=== PATIENT | male | born 1965 | race Caucasian/White ===

== ENCOUNTER 2023-08-17 14:01 | Emergency (ER) | payer OTHER, SELFPAY ==
[2023-08-17 14:22] VITALS: BP 142/75
--- NOTE | 2023-08-17 15:54 | ED.GENMED ---
History of Present Illness
General
Chief Complaint: Dizziness
Source: patient
Time Seen by Provider: 08/17/23 15:42
Travel History
Have you had any contact with someone who has COVID-19?: No
Do you have any symptoms of coronavirus? Fever > 100 degrees, chills, cough, shortness of breath, sore throat, loss of taste or smell, muscle aches, or headache?: No
History of Present Illness
History of Present Illness:
58-year-old male presents from [facility]. He actually stopped the crisis first and was cleared from crisis. He states that his overall reason for visiting is his dissatisfaction with his current place of stay. He has ongoing symptoms of
dizziness shakiness constipation. None of these are new the symptoms going on over a year following some traumatic injuries. He denies fevers. He states the food at his [facility] is not good. He states he is not going back to that facility.
No other complaints at this
Phy Exam
Physical Exam
Physical Exam:
General: Well-appearing male no acute respiratory distress
HEENT: Normocephalic pupils equal round reactive to light
Heart: Regular rate and rhythm no murmurs
Lungs: Clear to auscultation bilaterally no wheezing.
Ext: No cyanosis or edema.
Skin: warm, no rashes
Neuro: Alert and oriented, no tremor
Course
Orders/Labs/Results
Orders:
Orders
08/17/23 15:53
Case Management Consult ONCE
Case Management Consult: Discharge Planning
Vital Signs
Initial and Last Documented VS:
Initial Vital Signs
Temp Pulse Resp BP Pulse Ox
98 F 78 16 142/75 98
08/17/23 14:22 08/17/23 14:22 08/17/23 14:22 08/17/23 14:22 08/17/23 14:22
Last Documented Vital Signs
Temp Pulse Resp BP Pulse Ox
98 F 66 16 107/77 98
08/17/23 14:22 08/17/23 16:07 08/17/23 16:07 08/17/23 16:07 08/17/23 16:07
MDM/Problems Addressed
Differential Diagnosis Includes:
Patient triaged as dizziness but this is not acute. This has been ongoing. There is no new acute medical issues going on today. His main issue is the [facility] he is currently staying at is not meeting his needs. Case management consulted.
*Critical Care Note
Total Time (30-74mins, 75-104mins- exclusive of procedures): Not Applicable
Update Note
Update Note:
Case management and to see patient. They spoke with him. They explained he does need to go back to his current facility that he can talk with case management there if he is unsatisfied. At this point no medical acute urgency is required to
evaluate for further tests indicated.
ED Attending Note
-
Portions of this chart may have been created with voice recognition software.� Occasional wrong word or��sound alike� substitutions may have occurred due to the inherent limitations of voice recognition software.
Discharge Plan
Departure
Patient Disposition: Home (Routine Discharge)
Date of Disposition: 08/17/23
Time of Disposition: 16:46
Patient with high blood pressure during this ER visit?: No
Discharge Problem:
Difficulty coping
Activity Restrictions/Additional Instructions:
Please return to your current nursing facility and speak with case management there if you are unsatisfied. Return here for any medical needs.
Interventions
Interventions:
*Risk Screen - Suicide Last Done: 08/17/23 16:01
*General Assessment Last Done: 08/17/23 16:01
*Neglect/Abuse Screening Last Done: 08/17/23 16:01
*ED COVID-19 Vaccine History Last Done: 08/17/23 16:01
ED- Neurological Assessment Last Done: 08/17/23 16:01
ED Swallowing Screen Last Done: 08/17/23 16:05
[2023-08-17 16:07] VITALS: BP 107/77
--- NOTE | 2023-08-17 16:41 | CM ---
CM reviewed medical records. CM met with patient in room. Patient stated that he does not want to return to [facility]. Patient stated that he does not like the food, and he doesn't get his medication on time. Patient stated that his room mate
is incontinent and the smell is offensive. CM asked what his plan would be regarding discharge if he doesn't return to [facility]. Patient stated that he will walk to [place] or take a cab to [place] and lives on the streets. Cm asked where he would get
his medications and food from. Patient stated that he will return to drinking.
CM stated that there will not be assistance in transportation to [place] unless we have a confirmed place. He stated that his family has abandoned him and he has no family resources.
Patient is now agreeable to return to [facility] .
CM spoke with Xi at [facility]. Confirmed that patient was accepted from [facility]. Patient is pending MA application to be able to transition to [facility] as patient has a history of TBI.
[facility] will work with patient to address some of his care needs.
--- NOTE | 2023-08-17 17:03 | EDRN ---
Pt is cleared by crisis and by medicine for discharge. Pt states he doesn't want to go back his facility, states he just wants to walk out and take a cab to [place]. Pt is alert, oriented, ambulatory with steady gait. Per crisis pt is free to leave.
== END 2023-08-17 17:14 | disposition home or self-care (01) ==
LOC: EMR 14:01
PROVIDERS: EMERGENCY PHYSICIAN Emergency Medicine; FAMILY PHYSICIAN Internal Medicine
DX: Z75.8 Other problems related to medical facilities and other health care (principal); Z73.9 Problem related to life management difficulty, unspecified
CPT/HCPCS: 99281

== ENCOUNTER 2024-03-02 13:34 | Emergency (ER) | payer MEDICARE, SELFPAY ==
[2024-03-02] VITALS (14 sets, daily range): BP systolic 111–149; BP diastolic 64–109; PULSE 63–98
[2024-03-02 13:56] LABS: % Basophils 0.7 % (0-2); % Eosinophils 3.3 % (0-6); % Immature Granulocytes 0.2 % (0-0.5); % Lymphocytes 32.7 % (20.5-51.1); % Monocytes 9.3 % (1.7-9.3); Absolute Eosinophils 0.2 10^3/uL (0-0.7); Absolute Monocytes 0.6 10^3/uL (0.1-0.6); Absolute Neutrophils 3.3 10^3/uL (1.4-6.5); Hematocrit 38.5 % (39.0-52.0); Hemoglobin 13.3 g/dL (13.0-18.0); Mean Corp Hgb Conc. 34.6 g/dL (33.0-37.0); Mean Corpuscular Hgb 31.9 pg (27.0-31.0); Mean Corpuscular Volume 92.1 fL (80.0-94.0); Mean Platelet Volume 11.7 fL (7.4-10.4); Nucleated Red Blood Cells % 0 % (-); Platelet Count 95 10^3/uL (130-400); Red Blood Cell Count 4.17 10^6/uL (4.70-6.10); White Blood Cell Count 6.1 10^3/uL (4.8-10.8)
[2024-03-02 14:06] LABS: ALT (SGPT) 19 U/L (0-50); AST (SGOT) 20 U/L (17-59); Albumin 4.1 g/dl (3.5-5.0); Alkaline Phosphatase 61 U/L (38-126); Blood Urea Nitrogen 37 mg/dl (9-20); Calcium 9.9 mg/dl (8.4-10.2); Carbon Dioxide 29 mmol/L (22-30); Chloride 103 mmol/L (98-107); Glucose 129 mg/dl (70-99); Potassium 4.7 mmol/L (3.5-5.1); Sodium 142 mmol/L (135-145); Total Bilirubin 0.6 mg/dl (0.2-1.3); Total Protein 6.6 g/dl (6.3-8.2); eGFR > 60.00
--- NOTE | 2024-03-02 17:10 | ED.GENMED ---
History of Present Illness
<JESUS Kyle - Last Filed: 03/02/24 22:15>
General
Chief Complaint: Failure to Thrive
Source: patient
Exam Limitations: none
Time Seen by Provider: 03/02/24 16:25
Nursing documentation reviewed up to this point in time: agreed with
History of Present Illness
History of Present Illness:
Patient is a 58-year-old male with history of alcohol abuse traumatic brain injury diabetes from [facility] presents to the ER for evaluation. Patient tells me he is not happy at the facility because he has to walk
outside and go up and down a hill to get his food. He is unhappy with several other things at the facility. He is unhappy with his roommate. He reports sometimes he has trouble with caring for himself. He reports at times he feels weak.
Triage note states patient was reporting suicidal ideation but' too weak to do anything about it.' Patient admits to feeling depressed about his life situation does not like living at this facility but denies suicidal thoughts he denies any fever
or chills.
He denies any chest pain shortness of breath.
Patient complains of chronic pain
Review of Systems
<JESUS Kyle - Last Filed: 03/02/24 22:15>
Review of Systems
Allergies reviewed?: Yes
All Other Systems: ROS reviewed and negative except as documented in HPI and ROS
Constitutional: Reports fatigue; Denies fever
EENT: Reports no symptoms
Respiratory: Reports no symptoms; Denies trouble breathing
Cardiac: Reports no symptoms; Denies chest pain or palpitations
ABD/GI: Reports no symptoms; Denies abdominal pain, nausea or vomiting
Musculoskeletal: Reports no symptoms
Skin: Reports no symptoms
Neurological: Reports no symptoms
Hematologic/Lymphatic: Reports no symptoms
Psychiatric: Reports no symptoms
Phy Exam
<JESUS Kyle - Last Filed: 03/02/24 22:15>
General Physical Exam
General Presentation: no apparent distress
General age: appears stated age
General Skin: warm and dry
General Habitus: normal
General Mental: alert
General Hydration: appears well hydrated
Cardiovascular Exam
Cardiovascular Exam: regular rate/rhythm, no murmur and normal peripheral pulses
Pulmonary Exam
Pulmonary Exam: lungs clear and no respiratory distress
Gastrointestinal Exam
Gastrointestinal Exam: non tender and soft
Neurological Exam
Neurological Exam: alert and oriented x3
Musculoskeletal Exam
Musculoskeletal Exam: full ROM
Skin Exam
Skin Exam: normal color and warm/dry
Psychiatric Exam
Psychiatric Exam: normal mood/affect
Course
<JESUS Kyle - Last Filed: 03/02/24 22:15>
Orders/Labs/Results
Orders:
Orders
03/02/24 13:40
EKG [Electrocardiogram (*1)] Urgent
Reason for Study: Fatigue / Weakness
EKG- Treatment ONCE
03/02/24 13:42
Complete Blood Count/With Diff Urgent
Comprehensive Metabolic Panel Urgent
03/02/24 17:12
0.9% Sodium Chloride 1000 ml [Nss] 1,000 ml IV BOLUS
03/02/24 17:28
UA Reflex to Culture [Urinalysis Reflex To Culture] Urgent
Date Specimen was Collected: 03/02/24
Time Specimen was Collected: 17:23
Urine Microscopic Reflex Cult Urgent
03/02/24 19:02
Chest [CR Chest - 2 Views ] Urgent
Comment:
Reason For Exam: weakness
03/02/24 20:10
Crisis Consult Urgent
Reason for Consult: eval for outpt resources for depression
03/02/24 20:21
Walker [Treatment- Walker] ONCE
Abnormal Lab Results
03/02/24 03/02/24
13:42 17:28
RBC 4.17 L 10^6/uL
(4.70-6.10)
Hct 38.5 L %
(39.0-52.0)
MCH 31.9 H pg
(27.0-31.0)
Plt Count 95 L 10^3/uL
(130-400)
MPV 11.7 H fL
(7.4-10.4)
BUN 37 H mg/dl
(9-20)
Glucose 129 H mg/dl
(70-99)
Urine Ketones Trace A
(Negative)
Leukocyte Esterase Rfl Trace A
(Negative)
Urine Bacteria (Reflex) Few A
(Negative)
03/02/24 13:42
03/02/24 13:42
Vital Signs
Initial and Last Documented VS:
Initial Vital Signs
Temp Pulse Resp Pulse Ox
97.6 F 68 26 96
03/02/24 13:38 03/02/24 13:38 03/02/24 13:38 03/02/24 13:38
Last Documented Vital Signs
Temp Pulse Resp BP Pulse Ox
97.6 F 66 20 125/69 97
03/02/24 19:15 03/02/24 20:50 03/02/24 20:50 03/02/24 20:50 03/02/24 20:50
Checker Loader consulted with Physician
Checker Loader consulted with physician?: Yes
Name of Physician Consulted: Dr Cid
<Jorge Luis Cid, DO - Last Filed: 03/02/24 17:50>
Orders/Labs/Results
Orders:
Orders
03/02/24 13:40
EKG [Electrocardiogram (*1)] Urgent
Reason for Study: Fatigue / Weakness
EKG- Treatment ONCE
03/02/24 13:42
Complete Blood Count/With Diff Urgent
Comprehensive Metabolic Panel Urgent
03/02/24 17:12
0.9% Sodium Chloride 1000 ml [Nss] 1,000 ml IV BOLUS
03/02/24 17:28
UA Reflex to Culture [Urinalysis Reflex To Culture] Urgent
Date Specimen was Collected: 03/02/24
Time Specimen was Collected: 17:23
Urine Microscopic Reflex Cult Urgent
03/02/24 19:02
Chest [CR Chest - 2 Views ] Urgent
Comment:
Reason For Exam: weakness
03/02/24 20:10
Crisis Consult Urgent
Reason for Consult: eval for outpt resources for depression
03/02/24 20:21
Walker [Treatment- Walker] ONCE
Abnormal Lab Results
03/02/24 03/02/24
13:42 17:28
RBC 4.17 L 10^6/uL
(4.70-6.10)
Hct 38.5 L %
(39.0-52.0)
MCH 31.9 H pg
(27.0-31.0)
Plt Count 95 L 10^3/uL
(130-400)
MPV 11.7 H fL
(7.4-10.4)
BUN 37 H mg/dl
(9-20)
Glucose 129 H mg/dl
(70-99)
Urine Ketones Trace A
(Negative)
Leukocyte Esterase Rfl Trace A
(Negative)
Urine Bacteria (Reflex) Few A
(Negative)
03/02/24 13:42
03/02/24 13:42
Vital Signs
Initial and Last Documented VS:
Initial Vital Signs
Temp Pulse Resp Pulse Ox
97.6 F 68 26 96
03/02/24 13:38 03/02/24 13:38 03/02/24 13:38 03/02/24 13:38
Last Documented Vital Signs
Temp Pulse Resp BP Pulse Ox
97.6 F 66 20 125/69 97
03/02/24 19:15 03/02/24 20:50 03/02/24 20:50 03/02/24 20:50 03/02/24 20:50
<JESUS Kyle - Last Filed: 03/02/24 22:15>
MDM/Problems Addressed
Differential Diagnosis Includes:
Weakness failure to thrive dehydration chronic depression
MDM/Problems Addressed:
Patient is a 58-year-old male with history of TBI alcohol abuse presently at a [facility] presented to the ER for various complaints. He has not happy with his life situation does not like living there. He is not happy with
walking down another help for his food. He has complaints of generalized pain at times he feels weak. He denies any fever chills. He presents awake alert no acute distress labs are unremarkable. Patient appeared mildly dehydrated and BUN was
elevated. Patient was given fluids here in the ER. He had a meal and was also hydrated with normal saline. There were no acute findings on chest x-ray. He has no complaints of chest pain EKG noted however with no chest pain not concerning
finding. He ambulated here very well with a walker.
Triage note reported the patient reported suicidal ideation but patient denies on my exam. He does admit to feeling depressed over his life situation because he does not like living where he currently is residing but denies suicidal thoughts. Will
have crisis give patient outpatient resources. He will continue on his antidepressant medicine. Will plan to DC with a walker as patient did very well with a walker and encourage follow-up with family doctor for possible PT consult and evaluation
of current situation.
Discussed case with ED physician.
<JESUS Kyle - Last Filed: 03/02/24 22:15>
*Radiology
Radiology exam reviewed: preliminary read by ED provider (Chest x-ray reviewed by myself unremarkable)
*Pulse Oximetry
Patient hypoxic: no
*EKG
Interpreted by ED Provider?: Yes
*Critical Care Note
Total Time (30-74mins, 75-104mins- exclusive of procedures): Not Applicable
ED Attending Note
<JESUS Kyle - Last Filed: 03/02/24 22:15>
-
Portions of this chart may have been created with voice recognition software.� Occasional wrong word or��sound alike� substitutions may have occurred due to the inherent limitations of voice recognition software.
<Jorge Luis Cid DO - Last Filed: 03/02/24 17:50>
ED Attending Note
Patient seen and examined by attending physician: Yes
I performed the substantive portion of visit, reviewed & personally made and approve the management plan that is documented in note by myself or ELOINA.: Yes
ED Attending Note:
Seen with TAR HEEL, agree with assessment and plan 58-year-old male history of head injury, lives at a facility apparently having difficult activities of daily living complaining of a exacerbation of his chronic pains, sent here for evaluation
Discharge Plan
Departure
Patient Disposition: Home (Routine Discharge)
Date of Disposition: 03/02/24
Time of Disposition: 20:15
Patient with high blood pressure during this ER visit?: No
Condition: Fair
Covid-19: Not Applicable
Discharge Problem:
Weakness
Instructions: Weakness ED
Referrals:
Corbin Flannery DO [Family Provider] -
Activity Restrictions/Additional Instructions:
As discussed patient must increase fluids. Patient must be evaluated by his family doctor in the next several days for reevaluation of current symptoms. Patient will be given a walker to assist with ambulation. Patient was also given
outpatient resources for therapist for his depression.
Return if any worsening of symptoms.
Interventions
Interventions:
*Risk Screen - Suicide Last Done: 03/02/24 13:44
*General Assessment Last Done: 03/02/24 13:44
*Neglect/Abuse Screening Last Done: 03/02/24 13:44
ED- Fall Risk Assessment Last Done: 03/02/24 19:18
*ED COVID-19 Vaccine History Last Done: 03/02/24 13:44
Discharge Date and Time
Print Language: VENEZUELAN
[2024-03-02] MEDS: NSS 1000 IV (17:25)
[2024-03-02 17:49] LABS: Urine Albumin Trace (Neg - Trace); Urine Bilirubin Negative (Negative); Urine Character Clear (Clear); Urine Color Yellow; Urine Glucose Negative (Negative); Urine Ketone Trace (Negative); Urine Leukocyte Trace (Negative); Urine Nitrite Negative (Negative); Urine Occult Blood Negative (Negative); Urine Urobilinogen 1+ (Neg - 1+)
[2024-03-02 18:05] LABS: Urine Bacteria Few (Negative); Urine Red Blood Cell 0-2 /HPF (0-2); Urine Squamous Cell 0-2 /LPF (Few); Urine White Cell 0-2 /HPF (0-5)
== END 2024-03-02 21:45 | disposition home or self-care (01) ==
LOC: EMR 13:34
PROVIDERS: Emergency Medicine; Nurse Practitioner; EMERGENCY PHYSICIAN Emergency Medicine; FAMILY PHYSICIAN Internal Medicine Geriatric Medicine
DX: R53.1 Weakness (principal); E86.0 Dehydration; F10.10 Alcohol abuse, uncomplicated; E11.9 Type 2 diabetes mellitus without complications; Z87.820 Personal history of traumatic brain injury
CPT/HCPCS: 99282; 96360; 71046; 80053; 81003; 81015; 85025; 93005

== ENCOUNTER 2024-03-09 13:12 | Emergency (ER) | payer MEDICARE, SELFPAY ==
--- NOTE | 2024-03-09 13:26 | ED.GENMED ---
History of Present Illness
General
Chief Complaint: Generalized Pain
Source: patient and ambulance crew
Exam Limitations: none
Time Seen by Provider: 03/09/24 13:24
Nursing documentation reviewed up to this point in time: agreed with
History of Present Illness
History of Present Illness:
Patient is a 58-year-old male with past medical history of TBI, alcohol abuse type 2 diabetes anemia anxiety depression PTSD hyperlipidemia currently residing at [facility] presents here for evaluation. Patient was
just here on March 02. Patient complains of chronic pain. He states that his doctor was increasing his pain medication, meloxicam however he has not received this increased dose. He complains of feeling depressed over his life situation. He
mentions that he' wants to kill myself.' He complains of pain to his back neck head. He reports he feels shaky. His complaints today are similar to his ER visit March 02.
He is not happy with the care he is receiving at [facility].
He does have a daughter who is involved in his care and visits him.
Review of Systems
Review of Systems
Allergies reviewed?: Yes
All Other Systems: ROS reviewed and negative except as documented in HPI and ROS
Constitutional: Reports no symptoms
Respiratory: Reports no symptoms
Cardiac: Reports no symptoms
ABD/GI: Reports no symptoms
: Reports no symptoms
Musculoskeletal: Reports other (back pain neck pain )
Skin: Reports no symptoms; Denies rash
Neurological: Reports no symptoms
Psychiatric: Reports other (depression comments about suicidal however denies on direct questioning )
Phy Exam
General Physical Exam
General Presentation: no apparent distress
General age: appears stated age
General Skin: warm and dry
General Habitus: normal
General Mental: alert
General Hydration: appears well hydrated
Cardiovascular Exam
Cardiovascular Exam: regular rate/rhythm, no murmur and normal peripheral pulses
Pulmonary Exam
Pulmonary Exam: lungs clear and no respiratory distress
Neurological Exam
Neurological Exam: alert and oriented x3
Musculoskeletal Exam
Musculoskeletal Exam: full ROM
Skin Exam
Skin Exam: normal color and warm/dry
Psychiatric Exam
Psychiatric Exam: depressed
Course
Orders/Labs/Results
Orders:
Orders
03/09/24 13:29
PSYCHIATRY CONSULT Urgent
Consulting Provider: Sarina Caba
Was physician already notified: Yes
Reason for consult: suicidal thoughts
IV Insert/Care/Rem.- Treatment PRN
03/09/24 13:31
Case Management Consult ONCE
Case Management Consult: Discharge Planning
Requested By:: PHYSICIAN
03/09/24 13:37
Complete Blood Count/With Diff Urgent
Comprehensive Metabolic Panel Urgent
Urinalysis Reflex To Culture Urgent
Date Specimen was Collected: 03/09/24
Time Specimen was Collected: 13:35
Urine Microscopic Reflex Cult Urgent
Abnormal Lab Results
03/09/24
13:37
RBC 4.01 L 10^6/uL
(4.70-6.10)
Hgb 12.6 L g/dL
(13.0-18.0)
Hct 35.8 L %
(39.0-52.0)
MCH 31.4 H pg
(27.0-31.0)
Plt Count 107 L 10^3/uL
(130-400)
MPV 10.9 H fL
(7.4-10.4)
BUN 29 H mg/dl
(9-20)
Total Protein 6.1 L g/dl
(6.3-8.2)
Urine Ketones 1+ A
(Negative)
Urine Bilirubin 1+ A
(Negative)
Leukocyte Esterase Rfl Trace A
(Negative)
03/09/24 13:37
03/09/24 13:37
Vital Signs
Initial and Last Documented VS:
Initial Vital Signs
Pulse Ox
95
03/09/24 13:19
Last Documented Vital Signs
Temp Pulse Resp BP Pulse Ox
98.0 F 62 18 125/80 95
03/09/24 16:13 03/09/24 16:13 03/09/24 16:13 03/09/24 16:13 03/09/24 16:30
MDM/Problems Addressed
Differential Diagnosis Includes:
Not limited to chronic pain, depression, failure to thrive
MDM/Problems Addressed:
This is a 58-year-old male coming from [facility] for TBI patients with a history of TBI for alcohol abuse. This is patient's second visit since March 02.
In summary patient feels generally unhappy with his life situation. he is not happy at [facility]. He complains of chronic pain. This is not new. He had no new injury or fall. He denies any recent illness fever
chills.
Initially patient also stated again that he 'wanted to kill himself,' however on repeat questioning patient reports is not suicidal .he is to simply unhappy and depressed with his current. situation.
I spoke to crisis and psychiatry Dr. Caba. DR Caba did suggest crisis see patient again. Patient was evaluated by crisis who spent a lot of time with patient he again denies any suicidal thoughts. She did offer patient outpatient [facility] group therapy he is willing to do this. Pt was also seen by DR Caba.
I spoke to nurse at [facility]. She does inform me that they did place a call to [facility] pain management (JOSE in [place] today ). They also have a psychiatrist that can come see patient and I recommended that he does see
psychiatry.
Chronic conditions affecting care:
Former alcohol abuse TBI
*Pulse Oximetry
Patient hypoxic: no
*Critical Care Note
Total Time (30-74mins, 75-104mins- exclusive of procedures): Not Applicable
Data Reviewed
Review of Other/Old Records Reveals: Other (previous ED visit and labs )
Patient Management
Discussion with other providers: Network Contract Manager (Psychiatry)
ED Attending Note
-
Portions of this chart may have been created with voice recognition software.� Occasional wrong word or��sound alike� substitutions may have occurred due to the inherent limitations of voice recognition software.
Discharge Plan
Departure
Patient Disposition: Correction/SNF
Date of Disposition: 03/09/24
Time of Disposition: 16:06
Patient with high blood pressure during this ER visit?: No
Condition: Fair
Covid-19: Not Applicable
Discharge Problem:
medical evaluation
Prescriptions:
No Action
metformin 500 mg Tablet
500 mg PO BID
sennosides [senna] 8.6 mg Tablet
17.2 mg PO HS
polyethylene glycol 3350 [ClearLax] 17 gram Powder In Packet
17 g PO DAILY
meloxicam [Mobic] 15 mg Tablet
15 mg PO DAILY
olanzapine 10 mg Tablet
10 mg PO HS
Theragen Tablet
1 tab PO BID
tamsulosin [Flomax] 0.4 mg Capsule
0.4 mg PO DAILY
levothyroxine [Synthroid] 50 mcg Tablet
50 mcg PO DAILY
pantoprazole [Protonix] 40 mg Tablet,Delayed Release (Dr/Ec)
40 mg PO DAILY
trazodone 150 mg Tablet
150 mg PO HS
divalproex 500 mg Tablet Extended Release 24 Hr
500 mg PO TID
docusate sodium [Colace] 100 mg Capsule
100 mg PO DAILY
folic acid 1 mg Tablet
1 mg PO DAILY
levetiracetam [Keppra] 750 mg Tablet
750 mg PO BID
albuterol sulfate [ProAir HFA] 90 mcg/actuation Hfa Aerosol Inhaler
2 puff INHALATION R Q4HPRN PRN (Reason: sob)
fluoxetine [Prozac] 20 mg Capsule
20 mg PO DAILY
prazosin 2 mg Capsule
2 mg PO HS
trolamine salicylate [Aspercreme] 10 % Cream
1 applic TOPICAL DAILYPRN PRN (Reason: mild pain)
melatonin 5 mg Tablet
5 mg PO HSPRN PRN (Reason: sleep)
magnesium oxide 200 mg magnesium Tablet
200 mg PO DAILY
Referrals:
Corbin Flannery DO [Family Provider] -
Activity Restrictions/Additional Instructions:
Patient was evaluated here in the ER there are no acute abnormalities. Patient was seen by crisis and a referral was made to [facility] outpatient group therapy.
In addition it is recommended the patient be seen by psychiatrist at [facility] and as discussed it is recommended the patient follow-up with pain management [facility] for chronic pain.
Interventions
Interventions:
*Risk Screen - Suicide Last Done: 03/09/24 13:14
*General Assessment Last Done: 03/09/24 13:14
*Neglect/Abuse Screening Last Done: 03/09/24 13:34
*ED COVID-19 Vaccine History Last Done: 03/09/24 13:34
Discharge Date and Time
Print Language: KOREAN
[2024-03-09 14:00] LABS: % Basophils 0.5 % (0-2); % Eosinophils 3.4 % (0-6); % Immature Granulocytes 0.2 % (0-0.5); % Monocytes 9.2 % (1.7-9.3); % Neutrophils 50.7 % (42.2-75.2); Absolute Eosinophils 0.2 10^3/uL (0-0.7); Absolute Lymphocytes 2.1 10^3/uL (1.2-3.4); Absolute Monocytes 0.5 10^3/uL (0.1-0.6); Hematocrit 35.8 % (39.0-52.0); Hemoglobin 12.6 g/dL (13.0-18.0); Mean Corp Hgb Conc. 35.2 g/dL (33.0-37.0); Mean Corpuscular Hgb 31.4 pg (27.0-31.0); Mean Corpuscular Volume 89.3 fL (80.0-94.0); Mean Platelet Volume 10.9 fL (7.4-10.4); Nucleated Red Blood Cells % 0 % (-); Platelet Count 107 10^3/uL (130-400); Red Blood Cell Count 4.01 10^6/uL (4.70-6.10); Red Cell Dist. Width 13.4 % (11.5-14.5); White Blood Cell Count 5.9 10^3/uL (4.8-10.8)
[2024-03-09 14:03] LABS: ALT (SGPT) 17 U/L (0-50); AST (SGOT) 19 U/L (17-59); Albumin 3.7 g/dl (3.5-5.0); Alkaline Phosphatase 58 U/L (38-126); Blood Urea Nitrogen 29 mg/dl (9-20); Calcium 9.9 mg/dl (8.4-10.2); Carbon Dioxide 25 mmol/L (22-30); Chloride 103 mmol/L (98-107); Glucose 77 mg/dl (70-99); Potassium 4.7 mmol/L (3.5-5.1); Sodium 139 mmol/L (135-145); Total Bilirubin 0.4 mg/dl (0.2-1.3); Total Protein 6.1 g/dl (6.3-8.2); eGFR > 60.00
--- NOTE | 2024-03-09 14:07 | CM ---
CM reviewed medical records. SABRA spoke with NERIS Murcia at [facility]. Patient have been a resident of the facility since October of 2023. Patient was previously at a skilled facility and was anxious to return home. Residential
treatment was secured at [facility] where the patient now lives. Patient is generally cooperative with medications and other structured activities. Divina reports that patient's mood is labile at times with reports of depressive symptoms and
expressing frustration with his living situation.
Patient was complaining of back pain and requested transfer to [facility] for further evaluation. Nursing requested possible imaging for his back pain, but they understand this is an outpatient follow up. CM provided [facility] with number for nursing to
discuss any further clinical issues.
Patient is to be evaluated by psychiatry due to suicidal ideations. CM will continue to follow as needed.
[2024-03-09 14:18] VITALS: BP 113/79
[2024-03-09 14:34] LABS: Urine Albumin Trace (Neg - Trace); Urine Bilirubin 1+ (Negative); Urine Character Clear (Clear); Urine Color Amber; Urine Glucose Negative (Negative); Urine Ketone 1+ (Negative); Urine Leukocyte Trace (Negative); Urine Nitrite Negative (Negative); Urine Occult Blood Negative (Negative); Urine Specific Gravity 1.015 (<1.030); Urine Urobilinogen 1+ (Neg - 1+)
[2024-03-09 14:44] LABS: Urine Red Blood Cell 0-2 /HPF (0-2); Urine White Cell 0-2 /HPF (0-5)
[2024-03-09 15:00] VITALS: BP 121/86
[2024-03-09 16:00] VITALS: BP 125/80
[2024-03-09 16:13] VITALS: BP 125/80
--- NOTE | 2024-03-09 16:26 | W.PN.UPDATE ---
Update Note
Progress Note Update
asked to see this patient bc ? suicidality. he comes to er for the second time this week w c.o pain. he did say sometimes he thinks about killing himself bc of the pain but he would not act on it...he just wants help w pain. he was seen by our
automobile body worker calixto dorantes who wrote up a comprehensive assessment which is in the [facility] chart. i saw him myself and discussed w her and agree with her assessment that he is not acutely suicidal but rather needs as soon as
possible to be seen by pain mgt to have his pain assessed. he is taking psychotropic medications his current meds include prozac zyprexa and trazodone. the patient has suffered much trauma including a serious head and spine injury about four
years ago when he fell down steps. he lost his prior...then his parents and brother the latter to covid. 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 he now lives in an rtf. discussed w ms
ja. she is calling rtf and recommending psychiatrist for support andmed mgt (would suggest cymbalta could be helpful instead of prozac...gabapentin for pain. not clear if zyprexa is a great choice given weight gain and he does not seem
psychotic. ) would also feel he might benefit from the top program at [facility] and ms dorantes will make that referral. again do not feel he is suicidal at present he has the crisis phone number if that should change.
[2024-03-09 17:00] VITALS: BP 126/73
[2024-03-09 18:00] VITALS: BP 137/79
== END 2024-03-09 18:43 ==
LOC: EMR 13:12
PROVIDERS: Nurse Practitioner; CONSULT PHYSICIAN Psychiatry & Neurology Psychiatry; EMERGENCY PHYSICIAN Emergency Medicine; FAMILY PHYSICIAN Internal Medicine Geriatric Medicine
DX: R10.84 Generalized abdominal pain (principal); R45.851 Suicidal ideations; E11.9 Type 2 diabetes mellitus without complications; D64.9 Anemia, unspecified; F41.8 Other specified anxiety disorders; F43.10 Post-traumatic stress disorder, unspecified; E78.00 Pure hypercholesterolemia, unspecified; F10.10 Alcohol abuse, uncomplicated; Z87.820 Personal history of traumatic brain injury
CPT/HCPCS: 99283; 80053; 81003; 81015; 85025

== ENCOUNTER 2024-03-25 02:42 | Inpatient (IN) | payer MEDICARE, SELFPAY ==
[2024-03-24 18:43] VITALS: BP 121/72; BMI 27.6
[2024-03-24 18:46] VITALS: BP 121/72
[2024-03-24 19:06] LABS: Venous Blood Gas B.E. -0.6 mmol/L (-4 to +4); Venous Blood Gas HCO3 25.4 mmol/L (22-27); Venous Blood Gas O2 Sat % 93.9 %; Venous Blood Gas pCO2 46 mmHg (35-48); Venous Blood Gas pH 7.35 (7.32-7.43); Venous Blood Gas pO2 63 mmHg (30-50)
[2024-03-24 19:10] LABS: % Basophils 0.5 % (0-2); % Eosinophils 2.5 % (0-6); % Immature Granulocytes 0.3 % (0-0.5); % Lymphocytes 41.3 % (20.5-51.1); % Monocytes 6.9 % (1.7-9.3); % Neutrophils 48.5 % (42.2-75.2); Absolute Eosinophils 0.2 10^3/uL (0-0.7); Absolute Monocytes 0.5 10^3/uL (0.1-0.6); Absolute Neutrophils 3.6 10^3/uL (1.4-6.5); Hematocrit 35.6 % (39.0-52.0); Hemoglobin 12.6 g/dL (13.0-18.0); Mean Corp Hgb Conc. 35.4 g/dL (33.0-37.0); Mean Corpuscular Hgb 32.4 pg (27.0-31.0); Mean Corpuscular Volume 91.5 fL (80.0-94.0); Mean Platelet Volume 9.7 fL (7.4-10.4); Nucleated Red Blood Cells % 0 % (-); Platelet Count 143 10^3/uL (130-400); Red Blood Cell Count 3.89 10^6/uL (4.70-6.10); Red Cell Dist. Width 14.7 % (11.5-14.5); White Blood Cell Count 7.3 10^3/uL (4.8-10.8)
--- NOTE | 2024-03-24 19:12 | ED.GENMED ---
History of Present Illness
<Romario Peterson PA-C - Last Filed: 03/24/24 21:20>
General
Chief Complaint: Overdose Unintentional
Time Seen by Provider: 03/24/24 18:47
History of Present Illness
History of Present Illness:
59-year-old male with history of TBI presents from his independent care home for evaluation of a possible acetaminophen overdose. According to staff the patient was taken out of the facility today to go shopping at approximately 11 AM, at
approximately 5 PM he contacted his daughter and informed her that he 'stole a bottle of Tylenol' and plan to take the medication. He has a history of severe Tylenol overdose with admission to the intensive care unit at an outside hospital.
Patient is quite vague about the details and insist to me at first that he took the medication last night at 6 PM and on subsequent questioning states to me that he did not take any Tylenol tonight. Shortly after the phone call of the daughter at
approximately 5 PM staff searched the patient's room and found an empty bottle of Tylenol, 500 mg tablets quantity of 100. The age of this bottle was unknown. Patient denies any other coingestants but again history is limited due to history of TBI.
Review of Systems
<Romario Peterson PA-C - Last Filed: 03/24/24 21:20>
Review of Systems
Allergies reviewed?: Yes
All Other Systems: ROS reviewed and negative except as documented in HPI and ROS
Phy Exam
<Romario Peterson PA-C - Last Filed: 03/24/24 21:20>
Physical Exam
Physical Exam:
GEN: Well appearing, NAD, WDWN
HEENT: Oral mucosa moist, no scleral icterus
Cardiac: Regular rate and rhythm, no murmurs
Lung: No respiratory distress, no tachypnea
Abdomen: Soft, nontender
MSK: No gross deformity or injuries
Skin: Good color, no pallor or jaundice, no rashes
Neuro: AO x3, moves all extremities freely
Psych: Calm, cooperative
Course
<Romario Peterson PA-C - Last Filed: 03/24/24 21:20>
Orders/Labs/Results
Orders:
Orders
03/24/24 18:48
Electrocardiogram (*1) Urgent
Reason for Study: Other
Other Reason for Exam: potential overdose
EKG- Treatment ONCE
03/24/24 18:53
Acetaminophen Urgent
Alcohol Urgent
Complete Blood Count/With Diff Urgent
Comprehensive Metabolic Panel Urgent
Salicylate Urgent
03/24/24 18:55
Prothrombin Time Urgent
Valproic Acid Level [Depakane] Urgent
Venous Blood Gas Urgent
%Oxygen/Room Air: 99
03/24/24 19:37
Acetylcysteine [Acetadote] 12,700 mg 0.45% Sodium Chloride 250 ml [0.45%NaCl] 200 ml IV NOW
03/24/24 20:12
Levetiracetam [Keppra] 750 mg PO NOW STA
03/24/24 20:13
Prazosin HCl [Minipress] 2 mg PO NOW STA
03/24/24 20:48
Divalproex Extended Rel. 24 Hr [Depakote ER (24 Hr Release)] 500 mg PO NOW STA
03/24/24 20:49
Olanzapine [Zyprexa] 10 mg PO NOW STA
Prazosin HCl [Minipress] 2 mg PO NOW STA
Trazodone [Desyrel] 150 mg PO NOW STA
03/24/24 21:00
Acetylcysteine [Acetadote] 4,240 mg 0.45% Sodium Chloride 500 ml [0.45%NaCl] 500 ml IV ONCE
03/25/24 00:07
Acetaminophen Urgent
Comprehensive Metabolic Panel Urgent
03/25/24 01:00
Acetylcysteine [Acetadote] 8,460 mg 0.45% Sodium Chloride 1000 ml [0.45%NaCl] 1,000 ml IV ONCE
Abnormal Lab Results
03/24/24 03/24/24 03/25/24
18:53 18:55 00:07
RBC 3.89 L 10^6/uL
(4.70-6.10)
Hgb 12.6 L g/dL
(13.0-18.0)
Hct 35.6 L %
(39.0-52.0)
MCH 32.4 H pg
(27.0-31.0)
RDW 14.7 H %
(11.5-14.5)
VBG pO2 63 H mmHg
(30-50)
Carbon Dioxide 21 L mmol/L
(22-30)
BUN 28 H mg/dl 24 H mg/dl
(9-20) (9-20)
Glucose 102 H mg/dl 101 H mg/dl
(70-99) (70-99)
Alkaline Phosphatase < 20 L U/L
(38-126)
Total Protein 5.8 L g/dl
(6.3-8.2)
Salicylates < 1.0 L mg/dl
(2.0-20.0)
Acetaminophen 56 H ug/ml
(10-30)
Valproic Acid 38.7 L ug/ml
(50.0-120.0)
03/24/24 18:53
03/25/24 00:07
Vital Signs
Initial and Last Documented VS:
Initial Vital Signs
Temp Pulse Resp BP Pulse Ox
98 F 75 15 121/72 96
03/24/24 18:43 03/24/24 18:43 03/24/24 18:43 03/24/24 18:43 03/24/24 18:43
Last Documented Vital Signs
Temp Pulse Resp BP Pulse Ox
98 F 78 24 130/73 96
03/24/24 18:43 03/25/24 00:30 03/25/24 00:30 03/25/24 00:00 03/25/24 00:30
<JESUS Fall - Last Filed: 03/25/24 00:50>
Orders/Labs/Results
Orders:
Orders
03/24/24 18:48
Electrocardiogram (*1) Urgent
Reason for Study: Other
Other Reason for Exam: potential overdose
EKG- Treatment ONCE
03/24/24 18:53
Acetaminophen Urgent
Alcohol Urgent
Complete Blood Count/With Diff Urgent
Comprehensive Metabolic Panel Urgent
Salicylate Urgent
03/24/24 18:55
Prothrombin Time Urgent
Valproic Acid Level [Depakane] Urgent
Venous Blood Gas Urgent
%Oxygen/Room Air: 99
03/24/24 19:37
Acetylcysteine [Acetadote] 12,700 mg 0.45% Sodium Chloride 250 ml [0.45%NaCl] 200 ml IV NOW
03/24/24 20:12
Levetiracetam [Keppra] 750 mg PO NOW STA
03/24/24 20:13
Prazosin HCl [Minipress] 2 mg PO NOW STA
03/24/24 20:48
Divalproex Extended Rel. 24 Hr [Depakote ER (24 Hr Release)] 500 mg PO NOW STA
03/24/24 20:49
Olanzapine [Zyprexa] 10 mg PO NOW STA
Prazosin HCl [Minipress] 2 mg PO NOW STA
Trazodone [Desyrel] 150 mg PO NOW STA
03/24/24 21:00
Acetylcysteine [Acetadote] 4,240 mg 0.45% Sodium Chloride 500 ml [0.45%NaCl] 500 ml IV ONCE
03/25/24 00:07
Acetaminophen Urgent
Comprehensive Metabolic Panel Urgent
03/25/24 01:00
Acetylcysteine [Acetadote] 8,460 mg 0.45% Sodium Chloride 1000 ml [0.45%NaCl] 1,000 ml IV ONCE
Abnormal Lab Results
03/24/24 03/24/24 03/25/24
18:53 18:55 00:07
RBC 3.89 L 10^6/uL
(4.70-6.10)
Hgb 12.6 L g/dL
(13.0-18.0)
Hct 35.6 L %
(39.0-52.0)
MCH 32.4 H pg
(27.0-31.0)
RDW 14.7 H %
(11.5-14.5)
VBG pO2 63 H mmHg
(30-50)
Carbon Dioxide 21 L mmol/L
(22-30)
BUN 28 H mg/dl 24 H mg/dl
(9-20) (9-20)
Glucose 102 H mg/dl 101 H mg/dl
(70-99) (70-99)
Alkaline Phosphatase < 20 L U/L
(38-126)
Total Protein 5.8 L g/dl
(6.3-8.2)
Salicylates < 1.0 L mg/dl
(2.0-20.0)
Acetaminophen 56 H ug/ml
(10-30)
Valproic Acid 38.7 L ug/ml
(50.0-120.0)
03/24/24 18:53
03/25/24 00:07
H/H slightly low. Dehydration. hyperglycemia. salicylates <1.0, Acetaminophen 56.
Repeat Acetaminophen 30.
Vital Signs
Initial and Last Documented VS:
Initial Vital Signs
Temp Pulse Resp BP Pulse Ox
98 F 75 15 121/72 96
03/24/24 18:43 03/24/24 18:43 03/24/24 18:43 03/24/24 18:43 03/24/24 18:43
Last Documented Vital Signs
Temp Pulse Resp BP Pulse Ox
98 F 78 24 130/73 96
03/24/24 18:43 03/25/24 00:30 03/25/24 00:30 03/25/24 00:00 03/25/24 00:30
<Romario Peterson PA-C - Last Filed: 03/24/24 21:20>
MDM/Problems Addressed
MDM/Problems Addressed:
59-year-old male presents after possible severe Tylenol overdose. Initial CMP is reassuring however Tylenol is detectable thus N-acetylcysteine protocol was initiated. After labs resulted I contacted [facility] toxicology and was given
recommendations for repeat acetaminophen and CMP at midnight tonight. Those labs will determine admission versus discharge. Case will be signed out to Dr Wells pending repeat labs.
<JESUS Fall - Last Filed: 03/25/24 00:50>
MDM/Problems Addressed
MDM/Problems Addressed:
59-year-old male presents after possible severe Tylenol overdose. Initial CMP is reassuring however Tylenol is detectable thus N-acetylcysteine protocol was initiated. After labs resulted I contacted [facility] toxicology and was given
recommendations for repeat acetaminophen and CMP at midnight tonight. Those labs will determine admission versus discharge. Case will be signed out to Dr Wells pending repeat labs.
Patient labs at midnight abnormal. Tylenol level 30. Was told by Med Dir that if he was <10 he could go home, however, will admit patient. Patient is already on N-acetylcysteine drip. Will admit. Hospitalist notified.
<JESUS Fall - Last Filed: 03/25/24 00:50>
*Critical Care Note
Total Time (30-74mins, 75-104mins- exclusive of procedures): Not Applicable
<Romario Peterson PA-C - Last Filed: 03/24/24 21:20>
Update Note
Update Note:
Case d/w [facility] Toxicology Dr Sandy, recommends repeat APAP level and CMP at 0000, if APAP is >10 or if LFTs are abnormal, NAC protocol will be continued. If so, recommends repeat CMP 4 hrs prior to completion of NAC protocol
If APAP <10 and LFTs normal, may d/c NAC and d/c home
ED Attending Note
<Romario Peterson PA-C - Last Filed: 03/24/24 21:20>
-
Portions of this chart may have been created with voice recognition software.� Occasional wrong word or��sound alike� substitutions may have occurred due to the inherent limitations of voice recognition software.
Discharge Plan
Departure
Patient Disposition: Admit
Date of Disposition: 03/25/24
Time of Disposition: 00:45
Admit to: ICU
Presentation/result/management discussed w/ accepting MD/DO: Hospitalist
Condition: Good
Covid-19: Not Applicable
Discharge Problem:
Intentional acetaminophen overdose
Prescriptions:
No Action
metformin 500 mg Tablet
500 mg PO BID
sennosides [senna] 8.6 mg Tablet
17.2 mg PO HS
polyethylene glycol 3350 [ClearLax] 17 gram Powder In Packet
17 g PO DAILY
meloxicam [Mobic] 15 mg Tablet
15 mg PO DAILY
olanzapine 10 mg Tablet
10 mg PO HS
Theragen Tablet
1 tab PO BID
tamsulosin [Flomax] 0.4 mg Capsule
0.4 mg PO DAILY
levothyroxine [Synthroid] 50 mcg Tablet
50 mcg PO DAILY
pantoprazole [Protonix] 40 mg Tablet,Delayed Release (Dr/Ec)
40 mg PO DAILY
trazodone 150 mg Tablet
150 mg PO HS
divalproex 500 mg Tablet Extended Release 24 Hr
500 mg PO TID
docusate sodium [Colace] 100 mg Capsule
100 mg PO DAILY
folic acid 1 mg Tablet
1 mg PO DAILY
levetiracetam [Keppra] 750 mg Tablet
750 mg PO BID
albuterol sulfate [ProAir HFA] 90 mcg/actuation Hfa Aerosol Inhaler
2 puff INHALATION R Q4HPRN PRN (Reason: sob)
fluoxetine [Prozac] 20 mg Capsule
20 mg PO DAILY
prazosin 2 mg Capsule
2 mg PO HS
trolamine salicylate [Aspercreme] 10 % Cream
1 applic TOPICAL DAILYPRN PRN (Reason: mild pain)
melatonin 5 mg Tablet
5 mg PO HSPRN PRN (Reason: sleep)
magnesium oxide 200 mg magnesium Tablet
200 mg PO DAILY
Referrals:
Titus Antunez DO [Family Provider] -
Interventions
Interventions:
*Risk Screen - Suicide Last Done: 03/24/24 18:49
*General Assessment Last Done: 03/24/24 18:49
*Neglect/Abuse Screening Last Done: 03/24/24 18:49
*ED COVID-19 Vaccine History Last Done: 03/24/24 18:49
ED- Cardiac Assessment Last Done: 03/24/24 19:05
ED- Neurological Assessment Last Done: 03/24/24 19:05
ED-Psychological Assessment Last Done: 03/24/24 19:05
ED- Pulmonary Assessment Last Done: 03/24/24 19:05
Discharge Date and Time
Print Language: SINGAPOREAN
[2024-03-24 19:16] LABS: PT 13.3 Sec (11.4-14.6)
[2024-03-24 19:21] LABS: Chloride 104 mmol/L (98-107); Potassium 4.7 mmol/L (3.5-5.1); Sodium 143 mmol/L (135-145)
[2024-03-24 19:24] LABS: ALT (SGPT) 32 U/L (0-50); AST (SGOT) 28 U/L (17-59); Acetaminophen 56 ug/ml (10-30); Albumin 4.2 g/dl (3.5-5.0); Alkaline Phosphatase 63 U/L (38-126); Blood Urea Nitrogen 28 mg/dl (9-20); Calcium 9.9 mg/dl (8.4-10.2); Carbon Dioxide 23 mmol/L (22-30); Estimated Creatinine Clearance 71 ml/min; Glucose 102 mg/dl (70-99); Salicylate < 1.0 mg/dl (2.0-20.0); Total Bilirubin 0.5 mg/dl (0.2-1.3); Total Protein 6.7 g/dl (6.3-8.2); eGFR > 60.00
[2024-03-24 19:25] LABS: Alcohol None Detected
[2024-03-24 19:28] LABS: Depakane 38.7 ug/ml (50.0-120.0)
[2024-03-24 20:00] VITALS: BP 127/74
[2024-03-24] MEDS: ACETADOTE 263.5 MG IV (20:03)
[2024-03-24 21:01] VITALS: BP 145/82
[2024-03-24] MEDS: DESYREL 150 MG PO (21:01)
[2024-03-24] MEDS: MINIPRESS 2 MG PO (21:01)
[2024-03-24] MEDS: KEPPRA 750 MG PO (21:02)
[2024-03-24] MEDS: ZYPREXA 10 MG PO (21:02)
[2024-03-24] MEDS: DEPAKOTE ER (24 HR RELEASE) 500 MG PO (21:02)
[2024-03-24] MEDS: ACETADOTE 521.2 MG IV (21:16)
[2024-03-24 22:00] VITALS: BP 149/74
[2024-03-24 23:00] VITALS: BP 141/85
[2024-03-25] VITALS (11 sets, daily range): BP systolic 114–143; BP diastolic 64–84; BMI 26.6
[2024-03-25 00:27] LABS: ALT (SGPT) 30 U/L (0-50); AST (SGOT) 25 U/L (17-59); Acetaminophen 30 ug/ml (10-30); Albumin 3.5 g/dl (3.5-5.0); Alkaline Phosphatase < 20 U/L (38-126); Blood Urea Nitrogen 24 mg/dl (9-20); Calcium 9.1 mg/dl (8.4-10.2); Carbon Dioxide 21 mmol/L (22-30); Chloride 103 mmol/L (98-107); Estimated Creatinine Clearance 98 ml/min; Glucose 101 mg/dl (70-99); Potassium 4.3 mmol/L (3.5-5.1); Sodium 139 mmol/L (135-145); Total Bilirubin 0.5 mg/dl (0.2-1.3); Total Protein 5.8 g/dl (6.3-8.2); eGFR > 60.00
[2024-03-25] MEDS: ACETADOTE 1042.3 MG IV (01:23)
--- NOTE | 2024-03-25 02:17 | HPS.HSE ---
Family Physician
-
Family Physician: Titus Antunez
Chief Complaint
-
Tylenol overdose
History of Present Illness
This is a 59 y.o male with history of TBI, seizure disorder and substance dependence (EtOH) who presents to the emergency department with possible ostomy and overdose.
Patient is a fairly poor story and. He stated to me that he is only taking a couple tablets of Tylenol denied before. Apparently has been having back pain and is requesting evaluation by physician. He had become agitated because of this. Per
records patient told his daughter that he stole a bottle of Tylenol and plans to take the medication. He has a history of severe Tylenol overdose with prior admissions to ICU in an outside hospital.
He apparently reported that he took the medication last night at around 6 PM. A search of his room revealed an empty bottle of Tylenol 500 mg with quantity of 100. The age of this bottle was unknown. He denies any other coingestants.
On arrival in the emergency department he was awake and alert hemodynamically stable with a blood pressure of 127/70 pulse of 36 and satting at 93% on room air. ECG showed normal sinus rhythm with a left bundle and a QT of 490 which judging from
prior. CBC is within normal limits imaging or prior. Chemistries also chronically from prior. Normal LFTs. Acetaminophen level was initially 56 with a repeat of 35 hours later. Patient already acetylcysteine drip.
Medical History
Past Medical History
Past Medical History: Reports Other
Additional Past Medical History:
MAJOR DEPRESS
Psychophysiological insomnia
Schizophrenia,
Seizure disorder
Essential hypertension
ETOH abuse
Gait abnormality
Past Surgical History: Reports Brain
Social History
Tobacco: Former Smoker
Alcohol: Former
Drug: None
Personal:
Living: Senior Living
Employment: Not Employed
Family History
Family History: Not pertinent
Allergies / Home Medications
Allergies reflects when Allergies were last updated in [facility].
Home Medications with original date entered in [facility]
Allergy/Medication List:
Allergies
Allergy/AdvReac Type Severity Reaction Status Date / Time
No Known Allergies Allergy Verified 08/17/23 14:04
Home Medications
albuterol sulfate 90 mcg/actuation aerosol inhaler 2 puff inhalation R Q4HPRN PRN sob 03/09/24
divalproex 500 mg tablet,extended release 24 hr 500 mg PO TID seizure 03/09/24
docusate sodium 100 mg capsule (Colace) 100 mg PO DAILY constipation 03/09/24
fluoxetine 20 mg capsule (Prozac) 20 mg PO DAILY depression/anxiety 03/09/24
folic acid 1 mg tablet 1 mg PO DAILY supplement 03/09/24
levetiracetam 750 mg tablet (Keppra) 750 mg PO BID seizure 03/09/24
levothyroxine 50 mcg tablet (Synthroid) 50 mcg PO DAILY hypothyroidism 03/09/24
magnesium oxide 200 mg PO DAILY supplement 03/09/24
melatonin 5 mg tablet 5 mg PO HSPRN PRN sleep 03/09/24
meloxicam 15 mg tablet 15 mg PO DAILY pain 03/09/24
metformin 500 mg tablet 500 mg PO BID diabetes 03/09/24
olanzapine 10 mg tablet 10 mg PO HS Mental Health/Anxiety 03/09/24
pantoprazole 40 mg tablet,delayed release (Protonix) 40 mg PO DAILY Gastrointestinal Issue 03/09/24
polyethylene glycol 3350 17 gram oral powder packet (ClearLax) 17 g PO DAILY Constipation 03/09/24
prazosin 2 mg capsule 2 mg PO HS Blood Pressure 03/09/24
sennosides 8.6 mg tablet (senna) 17.2 mg PO HS Constipation 03/09/24
tamsulosin 0.4 mg capsule (Flomax) 0.4 mg PO DAILY Urinary Issue 03/09/24
therapeutic multivitamin 1 tab PO BID Supplement 03/09/24
trazodone 150 mg tablet 150 mg PO HS sleep 03/09/24
trolamine salicylate 10 % topical cream (Aspercreme) 1 applic topical DAILYPRN PRN mild pain 03/09/24
Review of Systems
-
History Source: Patient
Constitutional: Reports No Symptoms
EENT: Reports No Symptoms
Respiratory: Reports No Symptoms
Cardiac: Reports No Symptoms
Abdomen/GI: Reports No Symptoms
: Reports No Symptoms
Musculoskeletal: Reports No Symptoms
Skin: Reports No Symptoms
Neurological: Reports No Symptoms
Endocrine: Reports No Symptoms
Hematologic/Lymphatic: Reports No Symptoms
Psych: Reports Depression
Physical Exam
Vital Signs
Vital Signs
Temp Pulse Resp BP Pulse Ox
98 F 66 19 137/70 93
03/24/24 18:43 03/25/24 02:00 03/25/24 02:00 03/25/24 02:00 03/25/24 02:00
Physical Exam
General: No Apparent Distress
HEENT: NormoCephalic, Anicteric, Moist mucous membranes and Atraumatic
Respiratory: Clear
Cardiac: S1/S2 and Regular Rhythm
Breast: Deferred by me
GI: Non Tender, Non Distended and Normal Bowel Sounds
Rectal: Deferred by Provider
Genito-urinary: Deferred by me
Musculoskeletal: No Clubbing, No Cyanosis and No Edema
Skin: Warm
Neuro: AO x 3
Hematologic/Lymphatic: No Lymphadenopathy
Psych: Calm
Laboratory Results
-
03/24/24 18:53
03/25/24 00:07
Laboratory Results
PT 13.3 Sec (11.4-14.6) 03/24/24 18:55
INR 1.00 03/24/24 18:55
Total Bilirubin 0.5 mg/dl (0.2-1.3) 03/25/24 00:07
AST 25 U/L (17-59) 03/25/24 00:07
ALT 30 U/L (0-50) 03/25/24 00:07
Alkaline Phosphatase < 20 U/L (38-126) L 03/25/24 00:07
Data Reviewed
-
Medical Tests (Nuc Med, Echo, EKG etc): Image Personally Visualized and interpreted
Lab Data: Labs Reviewed by me
Old Records: Reviewed
Impression/Plan
-
IMPRESSION:
Patient with acute Tylenol overdose.
PLAN:
1. Tylenolol overdose -patient with a Tylenol level of 56. High risk patient with prior overdose history. Unclear number of hours postingestion but possibly acute toxicity given approximately 12 hours postingestion per patient's history. Repeat
Tylenol 6 hours later was 30 which will remain in the toxic level. Patient otherwise alert and oriented and in no acute distress. LFTs within normal limits.
- admit to medsurg
- continue NAC
- repeat tylenol level in am
- follow LFTs and InR in am
2. DM II
- hold metformin
- insulin sliding scale
3. Pain management
- toradol prn
4. Seizure D/O
- continue keppra 750 bid
- continue divalproex 500 tid
5. Depression
- continue fluoxetain and olanzapine
DVT PPX - lovenox sq
Code Status - Full Code
[2024-03-25 04:39] LABS: Glucose - Point of Care 114 mg/dl (70-99)
[2024-03-25] MEDS: SYNTHROID 50 MCG PO (05:59)
[2024-03-25 06:55] LABS: INR 1.14; PT 14.6 Sec (11.4-14.6)
[2024-03-25 07:06] LABS: Ammonia 44 umol/L (9-30)
[2024-03-25 07:15] LABS: Glucose - Point of Care 106 mg/dl (70-99)
[2024-03-25 08:07] LABS: ALT (SGPT) 30 U/L (0-50); AST (SGOT) 23 U/L (17-59); Acetaminophen < 10 ug/ml (10-30); Albumin 3.6 g/dl (3.5-5.0); Alkaline Phosphatase 50 U/L (38-126); Blood Urea Nitrogen 18 mg/dl (9-20); Calcium 9.3 mg/dl (8.4-10.2); Carbon Dioxide 24 mmol/L (22-30); Chloride 104 mmol/L (98-107); Direct Bilirubin 0.2 mg/dl (0.0-0.4); Estimated Creatinine Clearance 112 ml/min; Glucose 91 mg/dl (70-99); Magnesium 1.5 mg/dl (1.6-2.3); Potassium 3.9 mmol/L (3.5-5.1); Sodium 141 mmol/L (135-145); Total Bilirubin 0.6 mg/dl (0.2-1.3); Total Protein 5.9 g/dl (6.3-8.2); eGFR > 60.00
--- NOTE | 2024-03-25 08:49 | W.PN.HOSP.TC ---
Today's Communication/Plan
-
Psychiatry consulted given patient's recurrent Tylenol Overdose
Today with abdominal pain -- GI consulted
Assessment / Plan
Assessment / Plan
Physical Exam
General: No Apparent Distress
HEENT: Normocephalic
Respiratory: CTAB
Cardiac: S1/S2 and Regular Rhythm
GI: Non Tender, Non Distended and Normal Bowel Sounds
Musculoskeletal: No Cyanosis and No Edema
Skin: Warm. Dry.
Neuro: AAO x 3
Psych: Calm
Assessment/Plan
Patient with acute Tylenol overdose.
#Tylenol overdose -patient with a Tylenol level of 56. High risk patient with prior overdose history. Unclear number of hours postingestion but possibly acute toxicity given approximately 12 hours postingestion per patient's history. Repeat
Tylenol 6 hours later was 30 which will remain in the toxic level. Patient otherwise alert and oriented and in no acute distress. LFTs within normal limits.
#History of severe Tylenol overdose with prior admissions to ICU in an outside hospital
#Abdominal Pain
- admit to medsurg
- continue NAC
- Tylenol level trend: 56 --> 30 --> less than 10
- AST and ALT have been within normal limits since admission
- INR level normal
- Renal function is okay
- Consulted psychiatry given patient's recurrent Tylenol overdosing
- GI consult given patient's abdominal pain in the setting of Tylenol toxicity
2. DM II
- hold metformin
- insulin sliding scale
3. Pain management
- toradol prn
4. Seizure D/O
- continue keppra 750 bid
- continue divalproex 500 tid
5. Depression
- continue fluoxetain and olanzapine
DVT PPX - lovenox sq
Code Status - Full Code
Anticipated Discharge: > 48 hours
Subjective/Interval History
-
Date of Service: March 25, 2024
Patient was seen and examined. He reported chronic abdominal pain, was supposed to get a cholecystectomy next week. He was alert and awake and conversant.
Objective Data
-
Labs:
Laboratory Results
03/25/24 03/25/24 03/25/24
00:00 00:07 06:38
PT 14.6
INR 1.14
Sodium Cancelled 139 141
Potassium Cancelled 4.3 3.9
Chloride Cancelled 103 104
Carbon Dioxide Cancelled 21 L 24
BUN Cancelled 24 H 18
Creatinine Cancelled 0.8 0.7
Glucose Cancelled 101 H 91
Calcium Cancelled 9.1 9.3
Total Bilirubin Cancelled 0.5 0.6
AST Cancelled 25 23
ALT Cancelled 30 30
Alkaline Phosphatase Cancelled < 20 L 50
Vital Signs:
Vital Signs
Temp Pulse Resp BP Pulse Ox
98.2 F 61 17 143/65 95
03/25/24 07:35 03/25/24 07:35 03/25/24 07:35 03/25/24 07:35 03/25/24 07:35
[2024-03-25] MEDS: NOVOLOG FLEXPEN-LOW RESISTANCE SC ×3 (09:25→17:30)
[2024-03-25] MEDS: KEPPRA 750 MG PO ×2 (09:28→20:48)
[2024-03-25] MEDS: FOLVITE 1 MG PO (09:29)
[2024-03-25] MEDS: PROZAC 20 MG PO (09:29)
[2024-03-25] MEDS: PROTONIX 40 MG PO (09:29)
[2024-03-25] MEDS: FLOMAX 0.4 MG PO (09:29)
[2024-03-25] MEDS: DEPAKOTE ER (24 HR RELEASE) 500 MG PO ×3 (09:30→20:47)
[2024-03-25] MEDS: MAGNESIUM SULFATE 102 GRAMS IV (09:30)
[2024-03-25] MEDS: TORADOL 10 MG IV (09:33)
[2024-03-25 13:38] LABS: Glucose - Point of Care 128 mg/dl (70-99)
--- NOTE | 2024-03-25 13:56 | CM ---
Patient resides @ [facility] located @ [address], [place], [place]; ;
Pharmacy: [facility] @ [address] [place] [address]
CM spoke via phone with facility's dynamicist, Cierra Brandon. She reported that staff nurses at the facility called 911 after empty bottle of Tylenol was found in patient's room.
Per DON,
Patient has been at the facility since 10/28/2023 after being discharged from [facility];
Patient shares a house with 3 other residents; he has a private bedroom and bathroom; his bath has shower stall; seat; and grab bar;
Patient has a cane but does not use it all the time when ambulating; he was independent with ADLs @ baseline, however he needs to be reminded constantly to bathe and change his clothes;
And was participating in PT/OT at the facility
Transportation: facility has drivers during the week only; appointment for sweet pickled fruit maker will need to be scheduled if his Daughter is unable to provide transport back to the facility
Plan: Return to [facility] when medically stable
--- NOTE | 2024-03-25 16:23 | CON.GI ---
Consultation
-
Date/Time Consultation Requested: 03/25/24
Date/Time Consultation Performed: 03/25/24
Requesting Provider:
Performing Provider:
Reason for Consultation: abdominal pain
Medical History
Chief Complaint / HPI
Chief Complaint: tylenol overdose
History of Present Illness:
This is a 59-year-old male who has past medical history of TBI, alcohol abuse, type 2 diabetes, anemia, anxiety, depression, PTSD, hyperlipidemia, Psychophysiological insomnia, Schizophrenia, Seizure disorder, Essential hypertension, chronic pain
prior history of Tylenol overdose with ICU admission at an outside hospital in the past currently living in a shelter and was living in a care home prior to this who presented to the emergency room yesterday after Tylenol overdose. Patient is
forgetful and is a poor historian but apparently he had taken about 10 tablets of 500 mg of Tylenol. He may have taken this on 03/23 at 6 PM but timing may not be accurate and the quantity may not be accurate. He states that he had some old bottles
of Tylenol that he had leftover from the past but he admits to only taking 10 pills. He says that he was very frustrated and was having severe back pain, right leg pain and head pain and he felt that the pain was not being adequately addressed. He
says he has been through a lot he lost his . his parents and his brother within the last 5 years and also about 4 years ago had fall from steps and had head and spine injury and has had chronic pain since then. no fevers chills or nausea or
vomiting or diarrhea. No rectal bleeding or melena. His mentation is at baseline no history of encephalopathy. He also complains of vague lower abdominal pain. We were consulted for the abdominal pain. His acetaminophen level on admission was
56 he had been started on acetylcysteine drip since admission and his repeat acetaminophen level a few hours later was 30 and today morning is less than 10
Past Medical History
Past Medical History: Other (TBI, alcohol abuse, type 2 diabetes, anemia, anxiety, depression, PTSD, hyperlipidemia, Psychophysiological insomnia, Schizophrenia, Seizure disorder, Essential hypertension, chronic pain )
Past Surgical History: Other (brain after fall)
Social History
Tobacco: Former Smoker
Alcohol: Former
Drug: None
Personal:
Family History
Family History: Reviewed & Not Pertinent and Other
Allergies / Home Medications
Allergy/AdvReac Type Severity Reaction Status Date / Time
No Known Allergies Allergy Verified 08/17/23 14:04
�Medication �Instructions �Recorded
albuterol sulfate 90 mcg/actuation 2 puff inhalation R Q4HPRN PRN sob 03/09/24
aerosol inhaler
divalproex 500 mg tablet,extended 500 mg PO TID seizure 03/09/24
release 24 hr
docusate sodium 100 mg capsule 100 mg PO DAILY constipation 03/09/24
(Colace)
fluoxetine 20 mg capsule (Prozac) 20 mg PO DAILY depression/anxiety 03/09/24
folic acid 1 mg tablet 1 mg PO DAILY supplement 03/09/24
levetiracetam 750 mg tablet 750 mg PO BID seizure 03/09/24
(Keppra)
levothyroxine 50 mcg tablet 50 mcg PO DAILY hypothyroidism 03/09/24
(Synthroid)
magnesium oxide 200 mg PO DAILY supplement 03/09/24
melatonin 5 mg tablet 5 mg PO HSPRN PRN sleep 03/09/24
meloxicam 15 mg tablet 15 mg PO DAILY pain 03/09/24
metformin 500 mg tablet 500 mg PO BID diabetes 03/09/24
olanzapine 10 mg tablet 10 mg PO HS Mental Health/Anxiety 03/09/24
pantoprazole 40 mg tablet,delayed 40 mg PO DAILY Gastrointestinal 03/09/24
release (Protonix) Issue
polyethylene glycol 3350 17 gram 17 g PO DAILY Constipation 03/09/24
oral powder packet (ClearLax)
prazosin 2 mg capsule 2 mg PO HS Blood Pressure 03/09/24
sennosides 8.6 mg tablet (senna) 17.2 mg PO HS Constipation 03/09/24
tamsulosin 0.4 mg capsule (Flomax) 0.4 mg PO DAILY Urinary Issue 03/09/24
therapeutic multivitamin 1 tab PO BID Supplement 03/09/24
trazodone 150 mg tablet 150 mg PO HS sleep 03/09/24
trolamine salicylate 10 % topical 1 applic topical DAILYPRN PRN mild 03/09/24
cream (Aspercreme) pain
Review of Systems
-
All other systems: A 12 pt ROS was Negative except as stated above in HPI
Vital Signs
Temp Pulse Resp BP Pulse Ox
98.3 F 71 17 134/64 95
03/25/24 15:27 03/25/24 15:27 03/25/24 15:27 03/25/24 15:27 03/25/24 15:27
Physical Exam
Exam
General: No Apparent Distress
HEENT: Normocephalic
Respiratory: Clear
Cardiac: S1/S2
GI: Soft, Non Tender (mild lower abdomen tenderness), Non Distended and Normal Bowel Sounds
Musculoskeletal: No Clubbing
Skin: Warm
Neuro: Awake, Alert and Oriented
Psych: Calm
Results
WBC 7.3 10^3/uL (4.8-10.8) 03/24/24 18:53
Hgb 12.6 g/dL (13.0-18.0) L 03/24/24 18:53
Hct 35.6 % (39.0-52.0) L 03/24/24 18:53
MCV 91.5 fL (80.0-94.0) 03/24/24 18:53
Plt Count 143 10^3/uL (130-400) 03/24/24 18:53
Absolute Neuts (auto) 3.6 10^3/uL (1.4-6.5) 03/24/24 18:53
PT 14.6 Sec (11.4-14.6) 03/25/24 06:38
INR 1.14 03/25/24 06:38
Sodium 141 mmol/L (135-145) 03/25/24 06:38
Potassium 3.9 mmol/L (3.5-5.1) 03/25/24 06:38
Chloride 104 mmol/L (98-107) 03/25/24 06:38
Carbon Dioxide 24 mmol/L (22-30) 03/25/24 06:38
BUN 18 mg/dl (9-20) 03/25/24 06:38
Creatinine 0.7 mg/dL (0.7-1.3) 03/25/24 06:38
Calcium 9.3 mg/dl (8.4-10.2) 03/25/24 06:38
Total Bilirubin 0.6 mg/dl (0.2-1.3) 03/25/24 06:38
AST 23 U/L (17-59) 03/25/24 06:38
ALT 30 U/L (0-50) 03/25/24 06:38
Alkaline Phosphatase 50 U/L (38-126) 03/25/24 06:38
Diagnostic Image Results:
Prior GI Procedures:
EGD: none
Colonoscopy: none
Assessment / Plan
-
1. Acetaminophen overdose on 03/23/2024 unclear timing and dose but he claims that he took 10 pills of the 500 mg dose and has been treated with acetylcysteine and his LFTs have been normal INR is normal and no hepatic encephalopathy and also his
acetaminophen level is now normal. Will need a pain management consult he says that he took it because he was having severe back pain and he he felt that his pain was not being adequately addressed. He has had similar episodes in the past where he
was frustrated either with the care at the care home or with a roommate or food and has had similar episodes.
2. He does have mild lower abdominal pain but I think is most likely referred pain from his severe back pain and sciatica which he has had since the fall from the steps about 4 years ago. Will get an abdomen ultrasound and if his pain worsens and
ultrasound is negative may need a CT. Will also start him on a bowel regimen with MiraLAX and senna. He will also need an eventual screening colonoscopy
-
-
Thank you for consultation and allowing me to participate in the patient's care. Please call the [facility] GI physician during the after hours with any questions or concerns.
[2024-03-25 16:39] LABS: Glucose - Point of Care 130 mg/dl (70-99)
[2024-03-25] MEDS: LOVENOX 40 MG SC (17:30)
--- NOTE | 2024-03-25 18:58 | CON.MD ---
Consultation - Medical
-
59 yo M w/ PMH of TBI, DMT2 & seizure disorder. Presenting with Tylenol OD - Tylenol level 56 initially (12 hours post ingestion) & 30 six hours later. Psychiatry consulted for concerns of intentional OD, in particular as pt has hx of intentional
tylenol OD with ICU admission.
Pt is difficult to interview as he is tangential and logorrheic - has difficulty providing meaningful responses due to tangentiality. He denies ingesting the Tylenol with the intention of harming or killing himself, however multiple times makes
statements such as 'I have nothing to live for' and 'what's the point...I have no one left', etc. Admits to depression since his 5 yrs ago - ruminates on this loss, 'she took care of me so well'. Has also lost both parents, a
brother and other family members. Has no relationship with kids, outside of oldest daughter and her 4 children. Reports being unable to work after TBI and that one of his kids 'took' the house he and his lived in resulting in loss of
sentimental belongings (this daughter does not talk to him). Also describes anxiety with overthinking, internal distress, anxious ruminations and difficulty managing stressors. Toward the end of interview he also reports what sounds like possibly
hallucinations, though difficult to clearly gauge due to his being a poor historian. Reports seeing black spots in his vision and animals, 'no people yet' - however when questioned about this in more depth is unable to clearly express if he is
seeing things while awake or only when his eyes are closed or asleep (outside of the black spots which seem to be present all the time). Sleep also described as poor due to regular and disruptive nightmares whichhe describes as 'terrible'.
Attempted to elicit why he is on various psychotropics but pt unable to meaningfully discuss this as he does not seem to know majority of his medications. Difficult to clearly gauge if he has significant cognitive deficits vs possible delirium vs
combination of both. Although he denies this current time being an intentional SA, he demonstrates no future orientation - although at times he makes reference to needing to sort through his finances, he otherwise remains preoccupied with the loss
of his & other family members, as well as with his having nothing to live for. Attempted to discuss with him possibility of an inpatient psychiatric admission but he was unable to do so meaningfully as he kept becoming confused and tangential.
Of note, he also reports struggling with anger outbursts which he is unable to control - becomes angry, yells, breaks things. It seems this may be affecting his living environment and interpersonal interactions.
Also reports worsening tremor which has been disruptive and what sounds like worsening cognitive blunting. Had difficulty assessing for rigidity due to his difficulty with meaningfully following directions.
Prolonged grief vs MDD vs cognitive decline post-TBI (fell down concrete steps shortly after 's passing)
MSE: male, poor eye contact, speech is soft and rambling. Mood & affect depressed. Thought process tangential. Denies acute SI at the moment but lacks notable future orientation. Denies HI. Possibly some VH, no overt delusions observed. Memory not
formally tested. Somewhat oriented, knows hes in hospital but unable to elicit orientation outside of this. Insight/judgement poor.
1. He may benefit from inpatient psychiatric admission, however I am unclear if there is a degree of delirium complicating the picture and affecting his presentation - it does not seem the OD was with the intent to harm self, however does present as
quite depressed. Would reassess and see if this can be further elucidated if pts cognition improves at all
2. placed neurology consult as pt is on Keppra and reports anger outbursts as difficult to manage
3. Increased prazosin to 4mg
4. No other medication changes at this time, however I question why he is on Zyprexa 10mg HS as I am not entirely clear on the presence of psychosis - I suspect he can tolerate a decrease in the dose which may potentially help improve possible
Parkinsonism sxs which too have been disruptive
5. May benefit from prozac increase, but again am unclear as to cause of symptoms, nor does he know how long he has taken any of his medications and what they have done for him
[2024-03-25] MEDS: ZYPREXA 10 MG PO (20:48)
[2024-03-25] MEDS: MINIPRESS 4 MG PO (20:48)
[2024-03-25] MEDS: SENOKOT 17.2 MG PO (20:49)
[2024-03-25 21:35] LABS: Glucose - Point of Care 123 mg/dl (70-99)
[2024-03-26 03:00] VITALS: BP 121/65
[2024-03-26] MEDS: FLOMAX 0.4 MG PO (07:57)
[2024-03-26] MEDS: PROTONIX 40 MG PO (07:57)
[2024-03-26] MEDS: KEPPRA 750 MG PO ×2 (07:57→21:10)
[2024-03-26] MEDS: DEPAKOTE ER (24 HR RELEASE) 500 MG PO ×3 (07:57→21:11)
[2024-03-26] MEDS: MIRALAX 17 GRAMS PO (07:57)
[2024-03-26] MEDS: FOLVITE 1 MG PO (07:57)
[2024-03-26] MEDS: PROZAC 20 MG PO (07:57)
[2024-03-26] MEDS: SYNTHROID 50 MCG PO (07:57)
[2024-03-26 08:02] VITALS: BP 145/73
[2024-03-26] MEDS: TORADOL 10 MG IV ×2 (08:03→21:16)
[2024-03-26 08:41] LABS: Hematocrit 35.6 % (39.0-52.0); Hemoglobin 12.3 g/dL (13.0-18.0); Mean Corp Hgb Conc. 34.6 g/dL (33.0-37.0); Mean Corpuscular Hgb 31.9 pg (27.0-31.0); Mean Corpuscular Volume 92.5 fL (80.0-94.0); Mean Platelet Volume 10.1 fL (7.4-10.4); Platelet Count 123 10^3/uL (130-400); Red Blood Cell Count 3.85 10^6/uL (4.70-6.10); Red Cell Dist. Width 14.4 % (11.5-14.5); White Blood Cell Count 6.1 10^3/uL (4.8-10.8)
[2024-03-26 08:42] LABS: INR 1.09
[2024-03-26 08:46] LABS: Glucose - Point of Care 104 mg/dl (70-99)
[2024-03-26 09:02] LABS: ALT (SGPT) 30 U/L (0-50); AST (SGOT) 24 U/L (17-59); Albumin 3.4 g/dl (3.5-5.0); Alkaline Phosphatase 62 U/L (38-126); Blood Urea Nitrogen 13 mg/dl (9-20); Calcium 9.4 mg/dl (8.4-10.2); Carbon Dioxide 25 mmol/L (22-30); Chloride 107 mmol/L (98-107); Estimated Creatinine Clearance 112 ml/min; Glucose 81 mg/dl (70-99); Magnesium 1.6 mg/dl (1.6-2.3); Potassium 4.5 mmol/L (3.5-5.1); Sodium 140 mmol/L (135-145); Total Bilirubin 0.6 mg/dl (0.2-1.3); Total Protein 5.7 g/dl (6.3-8.2); eGFR > 60.00
[2024-03-26] MEDS: NOVOLOG FLEXPEN-LOW RESISTANCE SC ×3 (09:12→17:01)
--- NOTE | 2024-03-26 11:39 | W.PN.UPDATE ---
Update Note
Progress Note Update
59 y/o man, former [employer] who had multiple losses within a short period of time and then fell down a flight of stairs causing a TBI. Currently lives in some sort of residential placement, but apparently without psychiatric services
and he has not made any friends and does not have any activities. He has a history of multiple Tylenol overdoses. This one was not very severe (but did require NAC). He is a well-developed man who is quite depressed. He complains of a headache
and says he did not sleep well last night. Appetite is good. He cannot give an accurate history of his medications. He takes Keppra for seizures which may have adverse psychiatric effects and Dr. Almaraz is ordering a Neuro consult (she saw him
yesterday). Is also on Depakote,Prozac, prazosin, Klonopin.
He presents as alert and oriented. Mood depressed. Said he wanted the pain to stop as reason for taking Tylenol, but certainly does have at least passive suicidal ideation. Reports he has auditory hallucinations (did not appear to be
hallucinating) and bad dreams. Does not seem to be paranoid. Was not agitated with me.
He gave his house to his daughter who then kicked him out because she did not want to take care of him. He said he lives at [facility] but this seems like an unlikely name and did not know where it is located. Spends the day
in bed watching television. Does not enjoy the food. No psychiatric care. Costs him $1700/month.
He had behavior problems at a child and his parents sent him to special schools, but he could not recall any names. Raised in [place]. Only lived in [place] for 4 years.
I will raise Prozac to 40 mg.and continue other medications. Will add melatonin if he is agreeable. Psychiatry will follow.
[2024-03-26 11:45] VITALS: BP 116/60
--- NOTE | 2024-03-26 12:52 | CON.NEURO ---
Consultation
Order
Date of Consultation: 03/26/24
Requesting Provider: Sanjuana Almaraz M.D
Reason for Consult: on Keppra, unable to manage fits of anger
CC: headache
HPI:This is a 59-year-old man who presented to [facility] on March 24, 2024 with encephalopathy.
Neurology consultation was requested for antiepileptic therapy management.
According to the patient he has had seizures since his childhood. He also had learning and behavioral challenges throughout his childhood leading to [employer] school education.
Mr. Hansen recalls falling down the stairs after he had nervous breakdown following of his both parents and a brother within 1 months. He states that he underwent prolonged hospital stabilization and 'learn to walk again'. He does not
recall hospital name or state where he was cared for. The patient states that his sister helped him to be placed at [facility].
No reports of recent seizures.
Mr. Hansen endorses chronic headache as well as a nonradicular lower back pain and leg allodynia. He admits to opiate addiction in the past. No reports of change in vision, autonomic symptoms.
He is currently on divalproex 500 mg tablet,extended release 24 hr 500 mg PO TID and levetiracetam 750 mg tablet (Keppra) 750 mg PO BID.
ER VS: 121/72,75, afebrile
EKG: NSR, QTc Int : 490 ms
PDMP: Lorazepam 0.5 Mg�28 tabs filled in on 09/29/2023
Labs: Normal WBCs, hemoglobin�12.6, platelets�1 43�123, normal sodium, glucose, creatinine, magnesium�1.6
PMH: TBI, polysubstance addiction, MDD, ALEJANDRINA, insomnia, seizure disorder, HTN, DM, hypothyroidism, BPH
PSH:not sure
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
FH:father-cancer, in his 80s, mother form [facility]
All:NKDA
ROS:Constitutional: Negative. Negative for chills, fever and unexpected weight change.
HENT: positive for hearing impairment
Eyes: Negative. Negative for photophobia, pain and visual disturbance.
Respiratory: Negative for cough, choking and shortness of breath.
Cardiovascular: Negative for chest pain, palpitations and leg swelling.
Gastrointestinal: Negative for abdominal pain and vomiting.
Endocrine: Negative. Negative for cold intolerance.
Genitourinary: Negative for dysuria, flank pain and urgency.
Musculoskeletal:positive for back pain
Skin: Negative for rash.
Allergic/Immunologic: Negative. Negative for immunocompromised state.
Neurological: positive for numbness in the feet, imbalance, cognitive deficits, headache, seizures
Psychiatric/Behavioral: positive miguel insomnia
General: Well developed. In no acute distress. Poor dentition.
Cardio: Regular rate and rhythm without murmur. Extremities are without cyanosis or edema.
Neuro:
Mental Status: Alert, oriented to person, place, month, year. Poor attention and impaired comprehension. Follows simple requests. No aphasia. Increased processing time. Comprehension, naming, and repetition intact.
Cranial Nerves: Pupils are equally round and reactive to light. EOMs full. Visual braswell full to confrontation. No ptosis. No nystagmus. V1-V3 intact to light touch and pinprick bilaterally, symmetric. Face symmetric.Mildly impaired hearing
AU. The palate elevated well. SCMs and traps 5/5. Tongue midline. No dysarthria.
Motor: Normal bulk and tone. No pronator or arm drift. Strength 5/5 throughout. No clonus.
Reflexes: Limited exam due to allodynia.
Sensory: Severe allodynia in the feet
Coordination: No dysmetria or tremor.
Gait: deferred
Assessment and Plan:
I.History of epilepsy?
II. Multifactorial encephalopathy (posttraumatic, toxic, epileptic?)
III. Small fiber polyneuropathy
-Seizure precautions
-Avoid opioids given prior history of opioid addiction
-Brain MRI wo alejandrina
-neuropathy, arthropathy work up
-Start Neurontin 100 mg TID as tolerated
-Would continue Keppra for now untill medical records are received and reviewed.
-Will contact patient's family to obtain collateral history.
I personally reviewed all radiology and labs along with past medical records pertinent to current medical problems. Total time spent in patient care is 60 minutes.
Thank you for allowing us to participate in the care of this patient. We will continue to follow. Please do not hesitate to contact us with any questions or concerns.
Subjective/Objective
Subjective Data
Date of Service: March 26, 2024
Objective Data
Vital Signs
Temp Pulse Resp BP Pulse Ox
36.4 C 61 19 116/60 94
03/26/24 11:45 03/26/24 11:45 03/26/24 11:45 03/26/24 11:45 03/26/24 11:45
Lab Results
03/26/24 06:47
03/26/24 06:47
PT 14.0 Sec (11.4-14.6) 03/26/24 06:47
INR 1.09 03/26/24 06:47
Sodium 140 mmol/L (135-145) 03/26/24 06:47
Potassium 4.5 mmol/L (3.5-5.1) 03/26/24 06:47
BUN 13 mg/dl (9-20) 03/26/24 06:47
Glucose 81 mg/dl (70-99) 03/26/24 06:47
Calcium 9.4 mg/dl (8.4-10.2) 03/26/24 06:47
Patient Allergies
No Known Allergies Allergy (Verified 08/17/23 14:04)
Medications
-
Active Medications
Generic Name Dose Route Start Last Admin
Trade Name Freq PRN Reason Stop Dose Admin
Albuterol 2 puff 03/25/24 02:29
Albuterol Hfa [90 Mcg/Dose] Inhaler INH
R Q4HPRN PRN
sob
Protocol
Bisacodyl 10 mg 03/25/24 04:21
Bisacodyl 10 Mg Rectal Suppository RECTAL 04/22/24 04:20
[id number] PRN
constipation
Dextrose 12.5 grams 03/25/24 05:00
Dextrose 50% (0.5 Grams/Ml) 50 Ml Syringe IV 04/22/24 04:59
[id number] PRN
hypoglycemia
Protocol
Divalproex Sodium 500 mg 03/25/24 08:00 03/26/24 07:57
Divalproex 500 Mg Extended Release (24 Hr) Tablet PO 04/22/24 07:59 500 mg
TID ANTHONY Administration
Enoxaparin Sodium 40 mg 03/25/24 18:00 03/25/24 17:30
Enoxaparin Sodium 40 Mg/0.4 Ml Syringe SC 04/22/24 17:59 40 mg
QPM ANTHONY Administration
Fluoxetine HCl 40 mg 03/27/24 08:00
Fluoxetine 20 Mg Capsule PO 04/24/24 07:59
DAILY ANTHONY
Folic Acid 1 mg 03/25/24 08:00 03/26/24 07:57
Folic Acid 1 Mg Tablet PO 04/22/24 07:59 1 mg
DAILY ANTHONY Administration
Glucagon 1 mg 03/25/24 05:00
Glucagon 1 Mg Vial IM 04/22/24 04:59
PRN PRN
hypoglycemia - no IV access
Protocol
Insulin Aspart 0 units 03/25/24 07:30 03/26/24 09:12
Insulin Aspart Low Resistance 300 Units/3 Ml Pen.Injctr SC 04/22/24 07:29 Not Given
AC ANTHONY
Protocol
Ketorolac Tromethamine 10 mg 03/25/24 04:21 03/26/24 08:03
Ketorolac 15 Mg/Ml Injection IV 03/30/24 04:20 10 mg
Q6HPRN PRN Administration
moderate pain
Levetiracetam 750 mg 03/25/24 08:00 03/26/24 07:57
Levetiracetam 250 Mg Regular Release Tablet PO 04/22/24 07:59 750 mg
BID ANTHONY Administration
Levothyroxine Sodium 50 mcg 03/25/24 07:00 03/26/24 07:57
Levothyroxine 50 Mcg Tablet PO 04/22/24 06:59 50 mcg
DAILY AT 0700 ANTHONY Administration
Melatonin 5 mg 03/25/24 02:29
Melatonin 5 Mg Tablet PO 04/22/24 02:28
HSPRN PRN
sleep
Melatonin 5 mg 03/26/24 22:00
Melatonin 5 Mg Tablet PO 04/23/24 21:59
HS ANTHONY
Olanzapine 10 mg 03/25/24 22:00 03/25/24 20:48
Olanzapine 10 Mg Tablet PO 04/22/24 21:59 10 mg
HS ANTHONY Administration
Pantoprazole Sodium 40 mg 03/25/24 08:00 03/26/24 07:57
Pantoprazole 40 Mg Delayed Release Tablet PO 04/22/24 07:59 40 mg
DAILY ANTHONY Administration
Polyethylene Glycol 17 grams 03/25/24 04:21
Polyethylene Glycol Powder 17 Grams Packet PO 04/22/24 04:20
DAILYPRN PRN
constipation
Polyethylene Glycol 17 grams 03/26/24 08:00 03/26/24 07:57
Polyethylene Glycol Powder 17 Grams Packet PO 04/23/24 07:59 17 grams
DAILY ANTHONY Administration
Prazosin HCl 4 mg 03/25/24 22:00 03/25/24 20:48
Prazosin 1 Mg Capsule PO 04/22/24 21:59 4 mg
HS ANTHONY Administration
Senna/Docusate Sodium 1 tablet 03/25/24 04:21
Docusate W/Senna (Angella-Colace) Tablet PO 04/22/24 04:20
BIDPRN PRN
constipation
Sennosides 17.2 mg 03/25/24 22:00 03/25/24 20:49
Sennosides (Senokot) 8.6 Mg Tablet PO 04/22/24 21:59 17.2 mg
HS ANTHONY Administration
Sodium Chloride 0 flush 03/25/24 03:00
Sodium Chloride 0.9% (Flush) Syringe IV 04/22/24 02:59
PER PROTOCOL ANTHONY
Tamsulosin HCl 0.4 mg 03/25/24 08:00 03/26/24 07:57
Tamsulosin 0.4 Mg Capsule PO 04/22/24 07:59 0.4 mg
DAILY ANTHONY Administration
Home Medications
�Medication �Instructions �Recorded
albuterol sulfate 90 mcg/actuation 2 puff inhalation R Q4HPRN PRN sob 03/09/24
aerosol inhaler
divalproex 500 mg tablet,extended 500 mg PO TID seizure 03/09/24
release 24 hr
docusate sodium 100 mg capsule 100 mg PO DAILY constipation 03/09/24
(Colace)
fluoxetine 20 mg capsule (Prozac) 20 mg PO DAILY depression/anxiety 03/09/24
folic acid 1 mg tablet 1 mg PO DAILY supplement 03/09/24
levetiracetam 750 mg tablet 750 mg PO BID seizure 03/09/24
(Keppra)
levothyroxine 50 mcg tablet 50 mcg PO DAILY hypothyroidism 03/09/24
(Synthroid)
magnesium oxide 200 mg PO DAILY supplement 03/09/24
melatonin 5 mg tablet 5 mg PO HSPRN PRN sleep 03/09/24
meloxicam 15 mg tablet 15 mg PO DAILY pain 03/09/24
metformin 500 mg tablet 500 mg PO BID diabetes 03/09/24
olanzapine 10 mg tablet 10 mg PO HS Mental Health/Anxiety 03/09/24
pantoprazole 40 mg tablet,delayed 40 mg PO DAILY Gastrointestinal 03/09/24
release (Protonix) Issue
polyethylene glycol 3350 17 gram 17 g PO DAILY Constipation 03/09/24
oral powder packet (ClearLax)
prazosin 2 mg capsule 2 mg PO HS Blood Pressure 03/09/24
sennosides 8.6 mg tablet (senna) 17.2 mg PO HS Constipation 03/09/24
tamsulosin 0.4 mg capsule (Flomax) 0.4 mg PO DAILY Urinary Issue 03/09/24
therapeutic multivitamin 1 tab PO BID Supplement 03/09/24
trazodone 150 mg tablet 150 mg PO HS sleep 03/09/24
trolamine salicylate 10 % topical 1 applic topical DAILYPRN PRN mild 03/09/24
cream (Aspercreme) pain
Vital Signs and Labs
-
Vital Signs and Labs:
Vital Signs
Temp Pulse Resp BP Pulse Ox
36.4 C 61 19 116/60 94
03/26/24 11:45 03/26/24 11:45 03/26/24 11:45 03/26/24 11:45 03/26/24 11:45
Lab Results
03/26/24 06:47
03/26/24 06:47
PT 14.0 Sec (11.4-14.6) 03/26/24 06:47
INR 1.09 03/26/24 06:47
Sodium 140 mmol/L (135-145) 03/26/24 06:47
Potassium 4.5 mmol/L (3.5-5.1) 03/26/24 06:47
BUN 13 mg/dl (9-20) 03/26/24 06:47
Glucose 81 mg/dl (70-99) 03/26/24 06:47
Calcium 9.4 mg/dl (8.4-10.2) 03/26/24 06:47
Medications
-
Medications:
Generic Name Dose Route Start Last Admin
Trade Name Freq PRN Reason Stop Dose Admin
Albuterol 2 puff 03/25/24 02:29
Albuterol Hfa [90 Mcg/Dose] Inhaler INH
R Q4HPRN PRN
sob
Protocol
Bisacodyl 10 mg 03/25/24 04:21
Bisacodyl 10 Mg Rectal Suppository RECTAL 04/22/24 04:20
[id number] PRN
constipation
Dextrose 12.5 grams 03/25/24 05:00
Dextrose 50% (0.5 Grams/Ml) 50 Ml Syringe IV 04/22/24 04:59
[id number] PRN
hypoglycemia
Protocol
Divalproex Sodium 500 mg 03/25/24 08:00 03/26/24 07:57
Divalproex 500 Mg Extended Release (24 Hr) Tablet PO 04/22/24 07:59 500 mg
TID ANTHONY Administration
Enoxaparin Sodium 40 mg 03/25/24 18:00 03/25/24 17:30
Enoxaparin Sodium 40 Mg/0.4 Ml Syringe SC 04/22/24 17:59 40 mg
QPM ANTHONY Administration
Fluoxetine HCl 40 mg 03/27/24 08:00
Fluoxetine 20 Mg Capsule PO 04/24/24 07:59
DAILY ANTHONY
Folic Acid 1 mg 03/25/24 08:00 03/26/24 07:57
Folic Acid 1 Mg Tablet PO 04/22/24 07:59 1 mg
DAILY ANTHONY Administration
Glucagon 1 mg 03/25/24 05:00
Glucagon 1 Mg Vial IM 04/22/24 04:59
PRN PRN
hypoglycemia - no IV access
Protocol
Insulin Aspart 0 units 03/25/24 07:30 03/26/24 09:12
Insulin Aspart Low Resistance 300 Units/3 Ml Pen.Injctr SC 04/22/24 07:29 Not Given
AC ANTHONY
Protocol
Ketorolac Tromethamine 10 mg 03/25/24 04:21 03/26/24 08:03
Ketorolac 15 Mg/Ml Injection IV 03/30/24 04:20 10 mg
Q6HPRN PRN Administration
moderate pain
Levetiracetam 750 mg 03/25/24 08:00 03/26/24 07:57
Levetiracetam 250 Mg Regular Release Tablet PO 04/22/24 07:59 750 mg
BID ANTHONY Administration
Levothyroxine Sodium 50 mcg 03/25/24 07:00 03/26/24 07:57
Levothyroxine 50 Mcg Tablet PO 04/22/24 06:59 50 mcg
DAILY AT 0700 ANTHONY Administration
Melatonin 5 mg 03/25/24 02:29
Melatonin 5 Mg Tablet PO 04/22/24 02:28
HSPRN PRN
sleep
Melatonin 5 mg 03/26/24 22:00
Melatonin 5 Mg Tablet PO 04/23/24 21:59
HS ANTHONY
Olanzapine 10 mg 03/25/24 22:00 03/25/24 20:48
Olanzapine 10 Mg Tablet PO 04/22/24 21:59 10 mg
HS ANTHONY Administration
Pantoprazole Sodium 40 mg 03/25/24 08:00 03/26/24 07:57
Pantoprazole 40 Mg Delayed Release Tablet PO 04/22/24 07:59 40 mg
DAILY ANTHONY Administration
Polyethylene Glycol 17 grams 03/25/24 04:21
Polyethylene Glycol Powder 17 Grams Packet PO 04/22/24 04:20
DAILYPRN PRN
constipation
Polyethylene Glycol 17 grams 03/26/24 08:00 03/26/24 07:57
Polyethylene Glycol Powder 17 Grams Packet PO 04/23/24 07:59 17 grams
DAILY ANTHONY Administration
Prazosin HCl 4 mg 03/25/24 22:00 03/25/24 20:48
Prazosin 1 Mg Capsule PO 04/22/24 21:59 4 mg
HS ANTHONY Administration
Senna/Docusate Sodium 1 tablet 03/25/24 04:21
Docusate W/Senna (Angella-Colace) Tablet PO 04/22/24 04:20
BIDPRN PRN
constipation
Sennosides 17.2 mg 03/25/24 22:00 03/25/24 20:49
Sennosides (Senokot) 8.6 Mg Tablet PO 04/22/24 21:59 17.2 mg
HS ANTHONY Administration
Sodium Chloride 0 flush 03/25/24 03:00
Sodium Chloride 0.9% (Flush) Syringe IV 04/22/24 02:59
PER PROTOCOL ANTHONY
Tamsulosin HCl 0.4 mg 03/25/24 08:00 03/26/24 07:57
Tamsulosin 0.4 Mg Capsule PO 04/22/24 07:59 0.4 mg
DAILY ANTHONY Administration
Home Medications
-
Home Medications
albuterol sulfate 90 mcg/actuation aerosol inhaler 2 puff inhalation R Q4HPRN PRN sob 03/09/24
divalproex 500 mg tablet,extended release 24 hr 500 mg PO TID seizure 03/09/24
docusate sodium 100 mg capsule (Colace) 100 mg PO DAILY constipation 03/09/24
fluoxetine 20 mg capsule (Prozac) 20 mg PO DAILY depression/anxiety 03/09/24
folic acid 1 mg tablet 1 mg PO DAILY supplement 03/09/24
levetiracetam 750 mg tablet (Keppra) 750 mg PO BID seizure 03/09/24
levothyroxine 50 mcg tablet (Synthroid) 50 mcg PO DAILY hypothyroidism 03/09/24
magnesium oxide 200 mg PO DAILY supplement 03/09/24
melatonin 5 mg tablet 5 mg PO HSPRN PRN sleep 03/09/24
meloxicam 15 mg tablet 15 mg PO DAILY pain 03/09/24
metformin 500 mg tablet 500 mg PO BID diabetes 03/09/24
olanzapine 10 mg tablet 10 mg PO HS Mental Health/Anxiety 03/09/24
pantoprazole 40 mg tablet,delayed release (Protonix) 40 mg PO DAILY Gastrointestinal Issue 03/09/24
polyethylene glycol 3350 17 gram oral powder packet (ClearLax) 17 g PO DAILY Constipation 03/09/24
prazosin 2 mg capsule 2 mg PO HS Blood Pressure 03/09/24
sennosides 8.6 mg tablet (senna) 17.2 mg PO HS Constipation 03/09/24
tamsulosin 0.4 mg capsule (Flomax) 0.4 mg PO DAILY Urinary Issue 03/09/24
therapeutic multivitamin 1 tab PO BID Supplement 03/09/24
trazodone 150 mg tablet 150 mg PO HS sleep 03/09/24
trolamine salicylate 10 % topical cream (Aspercreme) 1 applic topical DAILYPRN PRN mild pain 03/09/24
--- NOTE | 2024-03-26 13:15 | W.PN.GI.CBS2 ---
Today's Communication / Plan
-
Continue Miralax and senna
If abd pain recurs then US/CT hold for now since pain is resolved most likely was referred/radicular pain from back
Assessment / Plan
-
1. Acetaminophen overdose on 03/23/2024 unclear timing and dose but he claims that he took 10 pills of the 500 mg dose and has been treated with acetylcysteine and his LFTs have been normal INR is normal and no hepatic encephalopathy and also his
acetaminophen level is now normal. Will need a pain management consult he says that he took it because he was having severe back pain and he he felt that his pain was not being adequately addressed. He has had similar episodes in the past where he
was frustrated either with the care [facility] or with a roommate or food and has had similar episodes. Noted input from psychiatry he also has depression and he denies suicidal attempt with Tylenol OD this episode. I went over at length
about the dangers of accidental or intentional Tylenol overdose and how it can precipitate fulminant hepatic failure and sometimes if unable to transplant in a timely manner
2. had mild lower abdominal pain but I think is most likely referred pain from his severe back pain and sciatica which he has had since the fall from the [place] about 4 years ago. Will also start him on a bowel regimen with MiraLAX and senna. He
will also need an eventual screening colonoscopy. His pain has completely resolved will hold off on imaging for now and follow-up as outpatient.
Will sign off and will be available as needed
Subjective
Subjective
Date of Service: March 26, 2024
.
Denies abdominal pain currently complains of back pain, noted input from psychiatry
Objective
Data Reviewed
Laboratory Data:
Laboratory Results
03/26/24 06:47
03/26/24 06:47
Laboratory Results
PT 14.0 Sec (11.4-14.6) 03/26/24 06:47
INR 1.09 03/26/24 06:47
Magnesium 1.6 mg/dl (1.6-2.3) 03/26/24 06:47
Total Bilirubin 0.6 mg/dl (0.2-1.3) 03/26/24 06:47
AST 24 U/L (17-59) 03/26/24 06:47
ALT 30 U/L (0-50) 03/26/24 06:47
Alkaline Phosphatase 62 U/L (38-126) 03/26/24 06:47
Vital Signs and I&O:
Vital Signs
Temp Pulse Resp BP Pulse Ox
97.6 F 61 19 116/60 94
03/26/24 11:45 03/26/24 11:45 03/26/24 11:45 03/26/24 11:45 03/26/24 11:45
I&O
03/25/24 03/26/24 03/27/24
06:59 06:59 06:59
Intake Total 960 / 960
Output Total 1025 / 1025
Balance -65 / -65
Physical Exam
Physical Exam
Cardiology: Normal Sinus Rhythm
Pulmonary: Clear
GI: Soft, Non Distended, Non Tender and Normal Bowel Sounds
[2024-03-26 13:19] LABS: Glucose - Point of Care 106 mg/dl (70-99)
[2024-03-26 14:00] LABS: Depakane 53.7 ug/ml (50.0-120.0)
--- NOTE | 2024-03-26 14:15 | W.PN.HOSP.TC ---
Today's Communication/Plan
-
Psych to evaluate for inpatient psych admission, medication changes being made, waiting for cognitive impairment to improve
Concern is patient's recurrent Tylenol overdoses
Assessment / Plan
Assessment / Plan
Physical Exam
General: No Apparent Distress
HEENT: Normocephalic
Respiratory: CTAB
Cardiac: S1/S2 and Regular Rhythm
GI: Non Tender, Non Distended and Normal Bowel Sounds
Musculoskeletal: No Cyanosis and No Edema
Skin: Warm. Dry.
Neuro: AAO x 3
Psych: Calm
Assessment/Plan
Patient with acute Tylenol overdose.
#Tylenol overdose -patient with a Tylenol level of 56. High risk patient with prior overdose history. Unclear number of hours postingestion but possibly acute toxicity given approximately 12 hours postingestion per patient's history. Repeat
Tylenol 6 hours later was 30 which will remain in the toxic level. Patient otherwise alert and oriented and in no acute distress. LFTs within normal limits.
#Prolonged grief vs MDD vs cognitive decline post-TBI (fell down [employer] [place] shortly after 's passing)
#History of severe Tylenol overdose with prior admissions to ICU in an outside hospital
#Abdominal Pain
- Status post NAC
- Tylenol level trend: 56 --> 30 --> less than 10
- AST and ALT have been within normal limits since admission
- INR level normal
- Renal function is okay
- Consulted psychiatry given patient's recurrent Tylenol overdosing: Prozac increased to 40 mg, continue other medications psychiatry consulted neurology since patient reported episodes of anger where he breaks things and
is unable to control himself and patient said that is not his baseline - he�s on keppra
- Decrease Zyprexa dose? Per Psychiatry
- Appreciate neurology and psychiatry help
- It was explained to the patient the dangers of accidental or intentional Tylenol overdose and how it can precipitate fulminant hepatic failure and sometimes if unable to transplant in a timely manner
- GI consult given patient's abdominal pain in the setting of Tylenol toxicity: bowel regimen, much of his pain from sciatica/back pain
#DM II
- hold metformin
- insulin sliding scale
#Pain management
- toradol prn
#Seizure Disorder
- continue keppra 750 bid
- continue divalproex 500 tid
#Depression
- Continue increased dose fluoxetine
- Continue olanzapine (although psychiatry is considering stopping it)
DVT Prophylaxis - Lovenox subq
Code Status - Full Code
Anticipated Discharge: > 48 hours
Subjective/Interval History
-
Date of Service: March 26, 2024
Patient was seen and examined. He reported a mild headache but reported no significant abdominal pain.
Objective Data
-
Labs:
Laboratory Results
03/26/24
06:47
WBC 6.1
Hgb 12.3 L
Hct 35.6 L
Plt Count 123 L
PT 14.0
INR 1.09
Sodium 140
Potassium 4.5
Chloride 107
Carbon Dioxide 25
BUN 13
Creatinine 0.7
Glucose 81
Calcium 9.4
Total Bilirubin 0.6
AST 24
ALT 30
Alkaline Phosphatase 62
Vital Signs:
Vital Signs
Temp Pulse Resp BP Pulse Ox
97.6 F 61 19 116/60 94
03/26/24 11:45 03/26/24 11:45 03/26/24 11:45 03/26/24 11:45 03/26/24 11:45
I&O
03/25/24 03/26/24 03/27/24
06:59 06:59 06:59
Intake Total 960 / 960
Output Total 1025 / 1025
Balance -65 / -65
[2024-03-26 14:30] LABS: TSH Reflex To Free T4 0.53 uIU/ml (0.47-4.68)
[2024-03-26 14:49] LABS: Vitamin B12 973 pg/ml (239-931)
[2024-03-26 15:27] LABS: Uric Acid 4.5 mg/dl (3.5-8.5)
[2024-03-26 15:28] LABS: D-Dimer 0.29 ug/mlFEU (0.00-0.50)
[2024-03-26 15:29] LABS: Erythrocyte Sed Rate 11 mm/hour (0-20)
[2024-03-26 15:50] VITALS: BP 153/72
[2024-03-26 16:02] LABS: Amphetamines Negative (Negative); Barbiturates Negative (Negative); Benzodiazepines Positive (Negative); Buprenorphine Negative (Negative); Cocaine Negative (Negative); Marijuana Negative (Negative); Methadone Negative (Negative); Methamphetamines Negative (Negative); Opiates Negative (Negative); Phencyclidine Negative (Negative); Tricyclic Antidepressants Negative (Negative)
[2024-03-26 16:33] LABS: Fentanyl, Urine Negative (Negative)
[2024-03-26 16:37] LABS: Folate > 20.0 ng/ml (2.76-20); Vitamin B12 965 pg/ml (239-931)
[2024-03-26 16:59] LABS: Glucose - Point of Care 114 mg/dl (70-99)
[2024-03-26] MEDS: LOVENOX 40 MG SC (17:30)
[2024-03-26] MEDS: NEURONTIN 100 MG PO ×2 (17:30→21:11)
[2024-03-26 19:00] VITALS: BP 133/63
[2024-03-26] MEDS: SENOKOT 17.2 MG PO (21:11)
[2024-03-26] MEDS: MELATONIN 5 MG PO (21:11)
[2024-03-26] MEDS: ZYPREXA 10 MG PO (21:11)
[2024-03-26] MEDS: MINIPRESS 4 MG PO (21:11)
[2024-03-26] MEDS: FLUSH (NSS) 2 FLUSH IV (21:18)
[2024-03-26 22:01] LABS: Glucose - Point of Care 115 mg/dl (70-99)
[2024-03-26 23:00] VITALS: BP 113/72
[2024-03-27] MEDS: FLUSH (NSS) 2 FLUSH IV (03:29)
[2024-03-27] MEDS: TORADOL 10 MG IV ×3 (03:29→21:22)
[2024-03-27] MEDS: SYNTHROID 50 MCG PO (06:43)
[2024-03-27 07:54] VITALS: BP 143/79
[2024-03-27] MEDS: DEPAKOTE ER (24 HR RELEASE) 500 MG PO ×3 (08:38→21:14)
[2024-03-27] MEDS: FLOMAX 0.4 MG PO (08:38)
[2024-03-27] MEDS: PROZAC 40 MG PO (08:38)
[2024-03-27] MEDS: KEPPRA 750 MG PO ×2 (08:38→20:15)
[2024-03-27] MEDS: NEURONTIN 100 MG PO ×3 (08:39→21:13)
[2024-03-27] MEDS: MIRALAX 17 GRAMS PO (08:39)
[2024-03-27] MEDS: PROTONIX 40 MG PO (08:39)
[2024-03-27] MEDS: FOLVITE 1 MG PO (08:42)
[2024-03-27] MEDS: NOVOLOG FLEXPEN-LOW RESISTANCE SC ×2 (08:43→16:02)
[2024-03-27 08:44] LABS: Glucose - Point of Care 98 mg/dl (70-99)
[2024-03-27 09:05] VITALS: BP 133/79; BP 141/81; PULSE 64; O2SAT 97
[2024-03-27 09:58] LABS: INR 1.01; PT 13.1 Sec (11.4-14.6)
[2024-03-27 10:18] LABS: ALT (SGPT) 32 U/L (0-50); AST (SGOT) 24 U/L (17-59); Albumin 3.5 g/dl (3.5-5.0); Alkaline Phosphatase 62 U/L (38-126); Blood Urea Nitrogen 22 mg/dl (9-20); Calcium 9.3 mg/dl (8.4-10.2); Carbon Dioxide 26 mmol/L (22-30); Chloride 106 mmol/L (98-107); Estimated Creatinine Clearance 98 ml/min; Glucose 81 mg/dl (70-99); Magnesium 1.6 mg/dl (1.6-2.3); Potassium 4.5 mmol/L (3.5-5.1); Sodium 143 mmol/L (135-145); Total Bilirubin 0.5 mg/dl (0.2-1.3); Total Protein 5.8 g/dl (6.3-8.2); eGFR > 60.00
--- NOTE | 2024-03-27 11:46 | W.PN.NEURO.1 ---
Today's Communication / Plan
-
.
Subjective/Objective
Subjective Data
Date of Service: March 27, 2024
Mr. Gomez endorses ongoing headache and quiñonez pain. He states pain in his feet have improved however numbness remains.
No change in vision, motor weakness.
Carlos states that the reason why he to look Tylenol was 2 address his pain. He does have history of opioid addiction.
CT head-Mild atrophy, mild to moderate patchy mucosal thickening of the anterior to mid ethmoid sinuses
PMH: TBI, polysubstance addiction, MDD, ALEJANDRINA, insomnia, seizure disorder, HTN, DM, hypothyroidism, BPH
PSH: not sure
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
FH:father-cancer, in his 80s, mother form [facility]
All:NKDA
ROS:Constitutional: Negative. Negative for chills, fever and unexpected weight change.
HENT: positive for hearing impairment
Eyes: Negative. Negative for photophobia, pain and visual disturbance.
Respiratory: Negative for cough, choking and shortness of breath.
Cardiovascular: Negative for chest pain, palpitations and leg swelling.
Gastrointestinal: Negative for abdominal pain and vomiting.
Endocrine: Negative. Negative for cold intolerance.
Genitourinary: Negative for dysuria, flank pain and urgency.
Musculoskeletal:positive for back pain
Skin: Negative for rash.
Allergic/Immunologic: Negative. Negative for immunocompromised state.
Neurological: positive for numbness in the feet, imbalance, cognitive deficits, headache, seizures
Psychiatric/Behavioral: positive miguel insomnia
General: Well developed. In no acute distress. Poor dentition.
Cardio: Regular rate and rhythm without murmur. Extremities are without cyanosis or edema.
Neuro:
Mental Status: Alert, oriented to person, place, month, year. Poor attention and impaired comprehension. Follows simple requests. No aphasia. Increased processing time. Comprehension, naming, and repetition intact.
Cranial Nerves: Pupils are equally round and reactive to light. EOMs full. Visual braswell full to confrontation. No ptosis. No nystagmus. V1-V3 intact to light touch and pinprick bilaterally, symmetric. Face symmetric.Mildly impaired hearing
AU. The palate elevated well. SCMs and traps 5/5. Tongue midline. No dysarthria.
Motor: Did not cooperate. Moves legs within bed plane.
Reflexes: Limited exam due to allodynia.
Sensory: Not reproducible exam.
Coordination: No dysmetria or tremor.
Gait: deferred
Assessment and Plan:
I.History of epilepsy?
II. Multifactorial encephalopathy (posttraumatic, toxic, epileptic?)
III. Small fiber polyneuropathy
IV. Back pain. Limited exam due to cooperation.
V. Headache, chronic sinusitis.
-Seizure precautions
-Avoid opioids given prior history of opioid addiction
-neuropathy, arthropathy work up
-Titrate Neurontin by 100 mg every 3 days as tolerated.
-Brain MRI wo alejandrina
-Follow-up small fiber neuropathy and arthropathy blood work.
-Would continue Keppra 750 mg twice daily
-Routine EEG
-LS spine XR
-ENT consult
-PT
I personally reviewed all radiology and labs along with past medical records pertinent to current medical problems. Total time spent in patient care is 40 minutes.
Thank you for allowing us to participate in the care of this patient. We will continue to follow. Please do not hesitate to contact us with any questions or concerns.
Objective Data
Vital Signs
Temp Pulse Resp BP Pulse Ox
36.8 C 63 19 143/79 98
03/27/24 07:54 03/27/24 07:54 03/27/24 07:54 03/27/24 07:54 03/27/24 08:31
Lab Results
03/26/24 06:47
03/27/24 07:54
PT 13.1 Sec (11.4-14.6) 03/27/24 07:54
INR 1.01 03/27/24 07:54
Sodium 143 mmol/L (135-145) 03/27/24 07:54
Potassium 4.5 mmol/L (3.5-5.1) 03/27/24 07:54
BUN 22 mg/dl (9-20) H 03/27/24 07:54
Glucose 81 mg/dl (70-99) 03/27/24 07:54
Calcium 9.3 mg/dl (8.4-10.2) 03/27/24 07:54
Vitamin B12 965 pg/ml (239-931) H 03/26/24 14:56
Ur Buprenorphine Negative (Negative) 03/26/24 15:12
Patient Allergies
No Known Allergies Allergy (Verified 08/17/23 14:04)
Vital Signs and Labs
-
Vital Signs and Labs:
Vital Signs
Temp Pulse Resp BP Pulse Ox
36.8 C 63 19 143/79 98
03/27/24 07:54 03/27/24 07:54 03/27/24 07:54 03/27/24 07:54 03/27/24 08:31
Lab Results
03/26/24 06:47
03/27/24 07:54
PT 13.1 Sec (11.4-14.6) 03/27/24 07:54
INR 1.01 03/27/24 07:54
Sodium 143 mmol/L (135-145) 03/27/24 07:54
Potassium 4.5 mmol/L (3.5-5.1) 03/27/24 07:54
BUN 22 mg/dl (9-20) H 03/27/24 07:54
Glucose 81 mg/dl (70-99) 03/27/24 07:54
Calcium 9.3 mg/dl (8.4-10.2) 03/27/24 07:54
Vitamin B12 965 pg/ml (516-231) H 03/26/24 14:56
Ur Buprenorphine Negative (Negative) 03/26/24 15:12
Medications
-
Medications:
Generic Name Dose Route Start Last Admin
Trade Name Freq PRN Reason Stop Dose Admin
Albuterol 2 puff 03/25/24 02:29
Albuterol Hfa [90 Mcg/Dose] Inhaler INH
R Q4HPRN PRN
sob
Protocol
Bisacodyl 10 mg 03/25/24 04:21
Bisacodyl 10 Mg Rectal Suppository RECTAL 04/22/24 04:20
[id number] PRN
constipation
Dextrose 12.5 grams 03/25/24 05:00
Dextrose 50% (0.5 Grams/Ml) 50 Ml Syringe IV 04/22/24 04:59
[id number] PRN
hypoglycemia
Protocol
Divalproex Sodium 500 mg 03/25/24 08:00 03/27/24 08:38
Divalproex 500 Mg Extended Release (24 Hr) Tablet PO 04/22/24 07:59 500 mg
TID ANTHONY Administration
Enoxaparin Sodium 40 mg 03/25/24 18:00 03/26/24 17:30
Enoxaparin Sodium 40 Mg/0.4 Ml Syringe SC 04/22/24 17:59 40 mg
QPM ANTHONY Administration
Fluoxetine HCl 40 mg 03/27/24 08:00 03/27/24 08:38
Fluoxetine 20 Mg Capsule PO 04/24/24 07:59 40 mg
DAILY ANTHONY Administration
Folic Acid 1 mg 03/25/24 08:00 03/27/24 08:42
Folic Acid 1 Mg Tablet PO 04/22/24 07:59 1 mg
DAILY ANTHONY Administration
Gabapentin 100 mg 03/26/24 16:00 03/27/24 08:39
Gabapentin 100 Mg Capsule PO 04/23/24 15:59 100 mg
TID ANTHONY Administration
Glucagon 1 mg 03/25/24 05:00
Glucagon 1 Mg Vial IM 04/22/24 04:59
PRN PRN
hypoglycemia - no IV access
Protocol
Insulin Aspart 0 units 03/25/24 07:30 03/27/24 08:43
Insulin Aspart Low Resistance 300 Units/3 Ml Pen.Injctr SC 04/22/24 07:29 Not Given
AC ANTHONY
Protocol
Ketorolac Tromethamine 10 mg 03/25/24 04:21 03/27/24 10:14
Ketorolac 15 Mg/Ml Injection IV 03/30/24 04:20 10 mg
Q6HPRN PRN Administration
moderate pain
Levetiracetam 750 mg 03/25/24 08:00 03/27/24 08:38
Levetiracetam 250 Mg Regular Release Tablet PO 04/22/24 07:59 750 mg
BID ANTHONY Administration
Levothyroxine Sodium 50 mcg 03/25/24 07:00 03/27/24 06:43
Levothyroxine 50 Mcg Tablet PO 04/22/24 06:59 50 mcg
DAILY AT 0700 ANTHONY Administration
Melatonin 5 mg 03/26/24 22:00 03/26/24 21:11
Melatonin 5 Mg Tablet PO 04/23/24 21:59 5 mg
HS ANTHONY Administration
Olanzapine 10 mg 03/25/24 22:00 03/26/24 21:11
Olanzapine 10 Mg Tablet PO 04/22/24 21:59 10 mg
HS ANTHONY Administration
Pantoprazole Sodium 40 mg 03/25/24 08:00 03/27/24 08:39
Pantoprazole 40 Mg Delayed Release Tablet PO 04/22/24 07:59 40 mg
DAILY ANTHONY Administration
Polyethylene Glycol 17 grams 03/25/24 04:21
Polyethylene Glycol Powder 17 Grams Packet PO 04/22/24 04:20
DAILYPRN PRN
constipation
Polyethylene Glycol 17 grams 03/26/24 08:00 03/27/24 08:39
Polyethylene Glycol Powder 17 Grams Packet PO 04/23/24 07:59 17 grams
DAILY ANTHONY Administration
Prazosin HCl 4 mg 03/25/24 22:00 03/26/24 21:11
Prazosin 1 Mg Capsule PO 04/22/24 21:59 4 mg
HS ANTHONY Administration
Senna/Docusate Sodium 1 tablet 03/25/24 04:21
Docusate W/Senna (Angella-Colace) Tablet PO 04/22/24 04:20
BIDPRN PRN
constipation
Sennosides 17.2 mg 03/25/24 22:00 03/26/24 21:11
Sennosides (Senokot) 8.6 Mg Tablet PO 04/22/24 21:59 17.2 mg
HS ANTHONY Administration
Sodium Chloride 0 flush 03/25/24 03:00 03/27/24 03:29
Sodium Chloride 0.9% (Flush) Syringe IV 04/22/24 02:59 2 flush
PER PROTOCOL ANTHONY Administration
Tamsulosin HCl 0.4 mg 03/25/24 08:00 03/27/24 08:38
Tamsulosin 0.4 Mg Capsule PO 04/22/24 07:59 0.4 mg
DAILY ANTHONY Administration
Home Medications
-
Home Medications
albuterol sulfate 90 mcg/actuation aerosol inhaler 2 puff inhalation R Q4HPRN PRN sob 03/09/24
divalproex 500 mg tablet,extended release 24 hr 500 mg PO TID seizure 03/09/24
docusate sodium 100 mg capsule (Colace) 100 mg PO DAILY constipation 03/09/24
fluoxetine 20 mg capsule (Prozac) 20 mg PO DAILY depression/anxiety 03/09/24
folic acid 1 mg tablet 1 mg PO DAILY supplement 03/09/24
levetiracetam 750 mg tablet (Keppra) 750 mg PO BID seizure 03/09/24
levothyroxine 50 mcg tablet (Synthroid) 50 mcg PO DAILY hypothyroidism 03/09/24
magnesium oxide 200 mg PO DAILY supplement 03/09/24
melatonin 5 mg tablet 5 mg PO HSPRN PRN sleep 03/09/24
meloxicam 15 mg tablet 15 mg PO DAILY pain 03/09/24
metformin 500 mg tablet 500 mg PO BID diabetes 03/09/24
olanzapine 10 mg tablet 10 mg PO HS Mental Health/Anxiety 03/09/24
pantoprazole 40 mg tablet,delayed release (Protonix) 40 mg PO DAILY Gastrointestinal Issue 03/09/24
polyethylene glycol 3350 17 gram oral powder packet (ClearLax) 17 g PO DAILY Constipation 03/09/24
prazosin 2 mg capsule 2 mg PO HS Blood Pressure 03/09/24
sennosides 8.6 mg tablet (senna) 17.2 mg PO HS Constipation 03/09/24
tamsulosin 0.4 mg capsule (Flomax) 0.4 mg PO DAILY Urinary Issue 03/09/24
therapeutic multivitamin 1 tab PO BID Supplement 03/09/24
trazodone 150 mg tablet 150 mg PO HS sleep 03/09/24
trolamine salicylate 10 % topical cream (Aspercreme) 1 applic topical DAILYPRN PRN mild pain 03/09/24
[2024-03-27 12:16] LABS: Glucose - Point of Care 157 mg/dl (70-99)
[2024-03-27 12:55] LABS: D-Dimer 0.29 ug/mlFEU (0.00-0.50)
[2024-03-27] MEDS: NOVOLOG FLEXPEN-LOW RESISTANCE 1 UNITS SC (13:28)
--- NOTE | 2024-03-27 15:09 | W.PN.UPDATE ---
Update Note
Progress Note Update
59 y/o man with history of behavioral problems since youth, multiple losses and TBI from falling down stairs. Seen for follow-up. Yesterday was seen by neurology and gabapentin 100 mg. TID started;CT of head not indicative of acute problem -- mild
atrophy and evidence of his past scalp contusion. I had raised Prozac from 20 mg. to 40 mg. and made melatonin 5 mg.scheduled HS.
He said he is in a pretty good mood today. Denies suicidal ideation. Reading menu. Alert and oriented. Cognitive problems evident and thought processes superficial. He still complains he did not sleep well. He is now agreeable to returning to
his residential program, but wants more social interaction and wants therapy. Should be arranged at [facility] for individual therapy, case management and psychiatric services. I will put in CM consult.
While i do not know him well, I do not see a need for psychiatric hospitalization if facility willing to have him back.
Neurology input appreciated.
No change in medications.
[2024-03-27 15:40] LABS: Glucose - Point of Care 136 mg/dl (70-99)
[2024-03-27 16:06] VITALS: BP 148/76
--- NOTE | 2024-03-27 16:43 | W.PN.HOSP.TC ---
Today's Communication/Plan
-
MRI Brain, EEG
Appreciate neurology
Assessment / Plan
Assessment / Plan
Physical Exam
General: No Apparent Distress
HEENT: Normocephalic
Respiratory: CTAB
Cardiac: S1/S2 and Regular Rhythm
GI: Non Tender, Non Distended and Normal Bowel Sounds
Musculoskeletal: No Cyanosis and No Edema
Skin: Warm. Dry.
Neuro: AAO x 3
Psych: Calm
Assessment/Plan
Patient with acute Tylenol overdose.
#Tylenol overdose -patient with a Tylenol level of 56. High risk patient with prior overdose history. Unclear number of hours postingestion but possibly acute toxicity given approximately 12 hours postingestion per patient's history. Repeat
Tylenol 6 hours later was 30 which will remain in the toxic level. Patient otherwise alert and oriented and in no acute distress. LFTs within normal limits.
#Prolonged grief vs MDD vs cognitive decline post-TBI (fell down concrete steps shortly after 's passing)
#History of severe Tylenol overdose with prior admissions to ICU in an outside hospital
#Abdominal Pain
- Status post NAC
- Tylenol level trend: 56 --> 30 --> less than 10
- AST and ALT have been within normal limits since admission
- INR level normal
- Renal function is okay
- Consulted psychiatry given patient's recurrent Tylenol overdosing: Prozac increased to 40 mg, continue other medications psychiatry consulted neurology since patient reported episodes of anger where he breaks things and
is unable to control himself and patient said that is not his baseline - he�s on keppra
- Continue Keppra 750 mg twice daily
- Brain MRI ordered
- Titrate Neurontin by 100 mg every 3 days as tolerated.
- Follow-up small fiber neuropathy and arthropathy blood work.
- Decrease Zyprexa dose? Per Psychiatry
- Avoid opioids
- Routine EEG
- LS spine XR
- ENT consult for chronic sinusitis as per neurology
- Appreciate neurology and psychiatry help
- It was explained to the patient the dangers of accidental or intentional Tylenol overdose and how it can precipitate fulminant hepatic failure and sometimes if unable to transplant in a timely manner
- GI consult given patient's abdominal pain in the setting of Tylenol toxicity: bowel regimen, much of his pain from sciatica/back pain
#DM II
- hold metformin
- insulin sliding scale
#Pain management
- toradol prn
#Seizure Disorder
- continue keppra 750 bid
- continue divalproex 500 tid
#Depression
- Continue increased dose fluoxetine
- Continue olanzapine (although psychiatry is considering stopping it)
DVT Prophylaxis - Lovenox subq
Code Status - Full Code
Anticipated Discharge: Within 24 hours
Subjective/Interval History
-
Date of Service: March 27, 2024
Patient was seen and examined. He reported some headache.
Objective Data
-
Labs:
Laboratory Results
03/27/24
07:54
PT 13.1
INR 1.01
Sodium 143
Potassium 4.5
Chloride 106
Carbon Dioxide 26
BUN 22 H
Creatinine 0.8
Glucose 81
Calcium 9.3
Total Bilirubin 0.5
AST 24
ALT 32
Alkaline Phosphatase 62
Vital Signs:
Vital Signs
Temp Pulse Resp BP Pulse Ox
98.1 F 64 20 148/76 97
03/27/24 16:06 03/27/24 16:06 03/27/24 16:06 03/27/24 16:06 03/27/24 16:06
I&O
03/26/24 03/27/24 03/28/24
06:59 06:59 06:59
Intake Total 960 / 960 440 / 440
Output Total 1025 / 1025 500 / 500
Balance -65 / -65 -60 / -60
[2024-03-27] MEDS: LOVENOX 40 MG SC (17:04)
[2024-03-27] MEDS: SENOKOT 17.2 MG PO (21:12)
[2024-03-27] MEDS: MELATONIN 5 MG PO (21:13)
[2024-03-27] MEDS: ZYPREXA 10 MG PO (21:13)
[2024-03-27 21:14] LABS: Glucose - Point of Care 126 mg/dl (70-99)
[2024-03-27] MEDS: MINIPRESS 4 MG PO (21:15)
[2024-03-28 00:10] VITALS: BP 138/73
[2024-03-28] MEDS: SYNTHROID 50 MCG PO (06:17)
[2024-03-28 07:15] VITALS: BP 141/78
[2024-03-28 07:40] LABS: % Basophils 0.7 % (0-2); % Eosinophils 5.7 % (0-6); % Immature Granulocytes 0.2 % (0-0.5); % Lymphocytes 44.7 % (20.5-51.1); % Monocytes 7.5 % (1.7-9.3); % Neutrophils 41.2 % (42.2-75.2); Absolute Eosinophils 0.3 10^3/uL (0-0.7); Absolute Lymphocytes 2.5 10^3/uL (1.2-3.4); Absolute Monocytes 0.4 10^3/uL (0.1-0.6); Absolute Neutrophils 2.3 10^3/uL (1.4-6.5); Hematocrit 34.6 % (39.0-52.0); Mean Corp Hgb Conc. 34.7 g/dL (33.0-37.0); Mean Corpuscular Hgb 31.5 pg (27.0-31.0); Mean Corpuscular Volume 90.8 fL (80.0-94.0); Mean Platelet Volume 9.7 fL (7.4-10.4); Nucleated Red Blood Cells % 0 % (-); Platelet Count 123 10^3/uL (130-400); Red Blood Cell Count 3.81 10^6/uL (4.70-6.10); Red Cell Dist. Width 14.2 % (11.5-14.5); White Blood Cell Count 5.6 10^3/uL (4.8-10.8)
[2024-03-28 07:45] LABS: Glucose - Point of Care 100 mg/dl (70-99)
[2024-03-28 07:47] LABS: INR 1.04; PT 13.4 Sec (11.4-14.6)
[2024-03-28] MEDS: NOVOLOG FLEXPEN-LOW RESISTANCE SC ×3 (07:54→17:02)
[2024-03-28] MEDS: MIRALAX 17 GRAMS PO (07:55)
[2024-03-28] MEDS: DEPAKOTE ER (24 HR RELEASE) 500 MG PO ×3 (07:55→21:23)
[2024-03-28] MEDS: KEPPRA 750 MG PO ×2 (07:55→21:21)
[2024-03-28] MEDS: NEURONTIN 100 MG PO ×3 (07:55→21:24)
[2024-03-28] MEDS: FLOMAX 0.4 MG PO (07:55)
[2024-03-28] MEDS: FOLVITE 1 MG PO (07:55)
[2024-03-28] MEDS: PROZAC 40 MG PO (07:55)
[2024-03-28] MEDS: PROTONIX 40 MG PO (07:55)
[2024-03-28] MEDS: TORADOL 10 MG IV ×2 (08:04→17:18)
[2024-03-28 08:06] LABS: ALT (SGPT) 31 U/L (0-50); AST (SGOT) 23 U/L (17-59); Albumin 3.3 g/dl (3.5-5.0); Alkaline Phosphatase 62 U/L (38-126); Blood Urea Nitrogen 27 mg/dl (9-20); Calcium 9.4 mg/dl (8.4-10.2); Carbon Dioxide 27 mmol/L (22-30); Chloride 105 mmol/L (98-107); Estimated Creatinine Clearance 98 ml/min; Glucose 91 mg/dl (70-99); Potassium 4.6 mmol/L (3.5-5.1); Sodium 140 mmol/L (135-145); Total Bilirubin 0.6 mg/dl (0.2-1.3); Total Protein 5.7 g/dl (6.3-8.2); eGFR > 60.00
--- NOTE | 2024-03-28 09:17 | PTCARENOTE ---
attempting to contact sister #1 contact RE: surgical hx as pt is poor historian. for MRI clearance
[2024-03-28 12:36] LABS: Glucose - Point of Care 87 mg/dl (70-99)
--- NOTE | 2024-03-28 12:55 | EEG.RPT ---
Electroencephalogram Report
Recording
Done with Video Recording: Yes
Patient Status: Inpatient
Recording Conditions: Awake and Drowsy
Hyperventilation Performed: No
Photic Stimulation Performed: Yes
Report
LESS THAN 1 HOUR EEG REPORT
LESS THAN 1 HOUR EEG INTERPRETATION:
Mildly abnormal EEG for age in wakefulness due to mild diffuse bihemispheric slowing
CLINICAL CORRELATION:
This study was suggestive of mild diffuse cortical dysfunction without focal abnormality. No seizures were recorded.
Clinical correlation is advised.
METHODS:
A 21 channel digitized electroencephalogram (EEG) was performed at the bedside. The 10/20 international system of electrode placement was used with ECG and lateral/vertical eye movements recorded. The [employer] Projective system was utilized.
QUALITY OF STUDY:
Good
ELECTROENCEPHALOGRAPHER IMPRESSION(S):
Background
Amplitude: Unremarkable
Anterior-Posterior Organization: Fair
Maximum: Theta
Asymmetry: None
Sleep
Drowsiness present
Photic Stimulation
Failed to activate the record
ECG
Normal sinus rhythm
--- NOTE | 2024-03-28 13:46 | W.PN.HOSP.TC ---
Addendum entered and electronically signed by Humberto Mccarthy MD 03/29/24 08:01:
No JEY evident
Original Note:
Today's Communication/Plan
-
Follow MRI brain
DC planning
Assessment / Plan
Assessment / Plan
Assessment/Plan
Patient with acute Tylenol overdose.
#Suspected Tylenol overdose - Doubt he had a significant intake of Tylenol. Serial Tylenol level does not support that. LFTs normal. INR normal. Patient also denies any intentional overdose of Tylenol.
#Depression and anxiety
- Continue increased dose fluoxetine
- Continue olanzapine (although psychiatry is considering stopping it)
- Psych recommending inpt psych once medically cleared
- MRI brain requested to eval for any new neurological issues Contributing to his mood issues
#DM II
- hold metformin
- insulin sliding scale
#Pain management
- toradol prn
#Seizure Disorder
- continue keppra 750 bid
- continue divalproex 500 tid
DVT Prophylaxis - Lovenox subq
Code Status - Full Code
Anticipated Discharge: Within 24 hours
Subjective/Interval History
-
Date of Service: March 28, 2024
His main concern is to control his anger, anxiety.
Denies any intentional overdose on Tylenol.
He wants to get his medical and psychiatric issues controlled so he can go back to live on his own in his apartment. Currently in a facility. He says he moved out there
Objective Data
-
Labs:
Laboratory Results
03/28/24
07:00
WBC 5.6
Hgb 12.0 L
Hct 34.6 L
Plt Count 123 L
PT 13.4
INR 1.04
Sodium 140
Potassium 4.6
Chloride 105
Carbon Dioxide 27
BUN 27 H
Creatinine 0.8
Glucose 91
Calcium 9.4
Total Bilirubin 0.6
AST 23
ALT 31
Alkaline Phosphatase 62
Vital Signs:
Vital Signs
Temp Pulse Resp BP Pulse Ox
98.4 F 64 17 141/78 98
03/28/24 07:15 03/28/24 07:15 03/28/24 07:15 03/28/24 07:15 03/28/24 08:05
I&O
03/27/24 03/28/24 03/29/24
06:59 06:59 06:59
Intake Total 440 / 440 960 / 960
Output Total 500 / 500 250 / 250
Balance -60 / -60 710 / 710
Review of Systems
-
Respiratory: Denies Trouble Breathing
Cardiac: Denies Chest Pain
Abdomen/GI: Denies Abdominal Pain, Nausea or Vomiting
Neuro: Reports Dizzy (at times)
Psych: Reports Anxious
Physical Exam
-
General: Comfortable
Respiratory: Non Labored Respirations; Negative Accessory Resp Muscle Use
Cardiac: Regular Rhythm
GI: Soft and Nontender
Neuro: AO x 3 and No Motor Deficits; Negative Tremors
Psych: Calm and Anxious; Negative Confused or Agitated
Data Reviewed
-
Labs: Labs Reviewed by me
--- NOTE | 2024-03-28 15:15 | PN.CDI ---
CDI
- -
CDI:
Physician Documentation Request
Admit Date: 03/25/24 02:42
Dear Doctor Fabio,
Please review the following and provide your response in the progress notes.
Clinical Indicators:
Pt admitted with intentional Tylenol OD
Renal functions are as below / Did get IV with NSS
03/24/24 03/25/24 03/26/24
18:53 00:07 06:47
Creatinine 1.1 0.8 0.7
Clarify which of the following accurately represents the patient's renal status:
JEY
Other ( please specify)
Criteria for JEY*
1 Increase in serum creatinine by > or = to 0.3 mg/dL (> or = to 26.5 micromol/L) within 48 hours, OR
2 Increase in serum creatinine to > or = to 1.5 times baseline, which is known or presumed to have occurred within 7 days, OR
3 Urine volume < 0.5 nL/kg/hour for six hours
Use of terms such as suspected, likely, concern for, or probable (associated with a specific diagnosis that is being evaluated, monitored, or treated as if it exists) are acceptable and can be coded in the inpatient setting, when documented at the
time of discharge.
Thank you,
Stacie Murguia RN
CDI Specialist
Roy Text
Please use your independent medical judgment in providing your response.
*Source: Kidney Disease: Improving Global Outcomes (KDIGO) 2012
--- NOTE | 2024-03-28 15:16 | W.PN.UPDATE ---
Update Note
Progress Note Update
Pt seen, chart reviewed. Pt calm, alert, cooperative. Pt talked about past losses, dissatisfaction with his current living situation- a [facility]- care home brain injury rehab. Pt denies SI. He c/o chronic pain and depression, as
well as chronic anger problem. Pt states he hopes to move and live with his daughter eventually or get his own place. Pt appears to be tolerating medication adjustments with no apparent side effects. Affect is stable/appropriate.
Imp: Unspecified depression with hx of TBI. Pt does not appear to need inpatient treatment
Rec: Will resume home dose of Prazosin 2 mg HS, continue increased Prozac, new Gabapentin.
Outpatient follow-up; return to care home rehab facility when medically stable
[2024-03-28 15:22] VITALS: BP 169/79
--- NOTE | 2024-03-28 16:10 | CM ---
Pt seen at bedside. Pt denies D&A when discussed [facility] resource per request of facility.
Pt stated he needs a psychiatrist, someone to talk to as he has a lot of anger and anxiety.
Pt states he currently is on medication for depression.
Pt is open to returning to facility despite dislikes he has.
Plan: Return to [facility]
[2024-03-28 16:17] LABS: Glucose - Point of Care 111 mg/dl (70-99)
[2024-03-28] MEDS: LOVENOX 40 MG SC (17:15)
[2024-03-28 21:01] LABS: Glucose - Point of Care 112 mg/dl (70-99)
[2024-03-28] MEDS: SENOKOT 17.2 MG PO (21:24)
[2024-03-28] MEDS: MELATONIN 5 MG PO (21:24)
[2024-03-28] MEDS: ZYPREXA 10 MG PO (21:24)
[2024-03-28] MEDS: MINIPRESS 2 MG PO (21:26)
[2024-03-28 21:43] LABS: ANA, IgG Reflex to HEp-2 None Detected (None Detected)
[2024-03-28 23:08] VITALS: BP 156/83
--- NOTE | 2024-03-29 04:02 | PTCARENOTE ---
Pt transported to MRI via . All jewelry removed prior to transport.
[2024-03-29] MEDS: SYNTHROID 50 MCG PO (04:31)
--- NOTE | 2024-03-29 04:33 | PTCARENOTE ---
Pt returned from MRI via
[2024-03-29 07:48] LABS: Glucose - Point of Care 117 mg/dl (70-99)
[2024-03-29 07:59] LABS: INR 1.02; PT 13.2 Sec (11.4-14.6)
[2024-03-29 08:00] VITALS: BP 147/75
[2024-03-29] MEDS: NOVOLOG FLEXPEN-LOW RESISTANCE SC ×3 (08:04→16:26)
[2024-03-29] MEDS: MIRALAX 17 GRAMS PO (08:06)
[2024-03-29] MEDS: DEPAKOTE ER (24 HR RELEASE) 500 MG PO ×2 (08:12→14:21)
[2024-03-29] MEDS: KEPPRA 750 MG PO (08:15)
[2024-03-29] MEDS: NEURONTIN 100 MG PO ×2 (08:15→14:21)
[2024-03-29] MEDS: FOLVITE 1 MG PO (08:15)
[2024-03-29] MEDS: PROZAC 40 MG PO (08:15)
[2024-03-29] MEDS: PROTONIX 40 MG PO (08:15)
[2024-03-29] MEDS: FLOMAX 0.4 MG PO (08:15)
[2024-03-29] MEDS: TORADOL 10 MG IV ×2 (08:16→14:20)
[2024-03-29 08:31] LABS: ALT (SGPT) 31 U/L (0-50); AST (SGOT) 27 U/L (17-59); Albumin 3.9 g/dl (3.5-5.0); Alkaline Phosphatase 69 U/L (38-126); Blood Urea Nitrogen 24 mg/dl (9-20); Calcium 9.1 mg/dl (8.4-10.2); Carbon Dioxide 22 mmol/L (22-30); Chloride 100 mmol/L (98-107); Estimated Creatinine Clearance 98 ml/min; Glucose 84 mg/dl (70-99); Potassium 4.1 mmol/L (3.5-5.1); Sodium 139 mmol/L (135-145); Total Bilirubin 0.6 mg/dl (0.2-1.3); Total Protein 6.4 g/dl (6.3-8.2); eGFR > 60.00
--- NOTE | 2024-03-29 11:33 | W.PN.HOSP.TC ---
Today's Communication/Plan
-
DC
Assessment / Plan
Assessment / Plan
Assessment/Plan
Patient with acute Tylenol overdose.
#Suspected Tylenol overdose - Doubt he had a significant intake of Tylenol. Serial Tylenol level does not support that. LFTs normal. INR normal. Patient also denies any intentional overdose of Tylenol. Psychiatry input noted. Patient
continues to deny any suicidal ideation to me.
#Depression and anxiety
- Continue increased dose fluoxetine
- Continue olanzapine
- Psych is not recommending inpt psych at this time
- MRI brain requested to eval for any new neurological issues shows no new acute issues .Pt has hx of TBI in past. 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 Other chronic findings noted. Pt has DM. Will add asa low dose . BP mostly
under goal.Check lipid panel.
#DM II
- resume metformin
- insulin sliding scale
#Pain management
- toradol prn
#Seizure Disorder
- continue keppra 750 bid
- continue divalproex 500 tid
- EEG no seizures.
DVT Prophylaxis - Lovenox subq
Code Status - Full Code
DC to long term if ok from neurological standpoint.
DW CM today
Total time of dc 32 min
Anticipated Discharge: Today
Subjective/Interval History
-
Date of Service: March 29, 2024
Feels better when he is in the hospital. Little apprehensive about this new set up at the long term. His goal is to get home or able to live again independently.
He continues to deny any suicidal ideation to me.He says no plans to harm himself.
He wants to pursue psychiatry care and get better. He says things are set up for him to see OP psychiatrist on regular basis -confirmed by CM .
Objective Data
-
Labs:
Laboratory Results
03/29/24
06:28
PT 13.2
INR 1.02
Sodium 139
Potassium 4.1
Chloride 100
Carbon Dioxide 22
BUN 24 H
Creatinine 0.8
Glucose 84
Calcium 9.1
Total Bilirubin 0.6
AST 27
ALT 31
Alkaline Phosphatase 69
Vital Signs:
Vital Signs
Temp Pulse Resp BP Pulse Ox
97.7 F 62 16 147/75 96
03/29/24 08:00 03/29/24 08:00 03/29/24 08:00 03/29/24 08:00 03/29/24 08:00
I&O
03/28/24 03/29/24 03/30/24
06:59 06:59 06:59
Intake Total 960 / 960 1080 / 1080
Output Total 250 / 250 850 / 850
Balance 710 / 710 230 / 230
Review of Systems
-
Constitutional: Denies Fever
Respiratory: Denies Trouble Breathing
Cardiac: Denies Chest Pain
Abdomen/GI: Denies Abdominal Pain, Nausea or Vomiting
Neuro: Reports Numbness (in his hands and feet ;better here); Denies Dizzy
Physical Exam
-
General: Comfortable
Respiratory: Non Labored Respirations; Negative Accessory Resp Muscle Use
Cardiac: Regular Rhythm and S1/S2; Negative Tachycardic
GI: Soft
Neuro: AO x 3 and No Motor Deficits; Negative Tremors, Slurred Speech or Facial Droop
Psych: Calm; Negative Confused or Agitated
Data Reviewed
-
MRI: Report Reviewed by me (MRI of brain)
Labs: Labs Reviewed by me
[2024-03-29 11:42] LABS: Glucose - Point of Care 127 mg/dl (70-99)
--- NOTE | 2024-03-29 11:48 | W.DS.TRANS ---
DC Summary - [employer]
-
Discharge Instructions:
Discharge Diagnosis/Procedures Suspected Tylenol overdose; anxiety/depression;
seizure disorder
Diet Diabetic, Carb Controlled
Activity As tolerated
Driving Restrictions As prior to admission
Bathing Restrictions None
Instructions:
Stand-Alone Forms:
Changes to Home Medications: Yes
Discharge Medications:
DC Medications w/original date entered in [employer]
albuterol sulfate 90 mcg/actuation aerosol inhaler 2 puff inhalation R Q4HPRN PRN sob 03/09/24
divalproex 500 mg tablet,extended release 24 hr 500 mg PO TID seizure 03/09/24
docusate sodium 100 mg capsule (Colace) 100 mg PO DAILY constipation 03/09/24
fluoxetine 20 mg capsule (Prozac) 20 mg PO DAILY depression/anxiety 03/09/24
folic acid 1 mg tablet 1 mg PO DAILY supplement 03/09/24
levetiracetam 750 mg tablet (Keppra) 750 mg PO BID seizure 03/09/24
levothyroxine 50 mcg tablet (Synthroid) 50 mcg PO DAILY hypothyroidism 03/09/24
magnesium oxide 200 mg PO DAILY supplement 03/09/24
melatonin 5 mg tablet 5 mg PO HSPRN PRN sleep 03/09/24
metformin 500 mg tablet 500 mg PO BID diabetes 03/09/24
olanzapine 10 mg tablet 10 mg PO HS Mental Health/Anxiety 03/09/24
pantoprazole 40 mg tablet,delayed release (Protonix) 40 mg PO DAILY Gastrointestinal Issue 03/09/24
polyethylene glycol 3350 17 gram oral powder packet (ClearLax) 17 g PO DAILY Constipation 03/09/24
prazosin 2 mg capsule 2 mg PO HS Blood Pressure 03/09/24
sennosides 8.6 mg tablet (senna) 17.2 mg PO HS Constipation 03/09/24
tamsulosin 0.4 mg capsule (Flomax) 0.4 mg PO DAILY Urinary Issue 03/09/24
therapeutic multivitamin 1 tab PO BID Supplement 03/09/24
trolamine salicylate 10 % topical cream (Aspercreme) 1 applic topical DAILYPRN PRN mild pain 03/09/24
aspirin 81 mg tablet,delayed release 81 mg PO DAILY #30 tabs 03/29/24
fluoxetine 20 mg capsule 40 mg (2 x 20 mg) PO DAILY #60 caps 03/29/24
gabapentin 100 mg capsule 100 mg PO TID #90 caps 03/29/24
polyethylene glycol 3350 17 gram oral powder packet (HealthyLax) 17 g PO DAILY #14 ea 03/29/24
Home Medication Changes
new medication-MiraLAX, gabapentin, aspirin
Change in medication-increase dose of fluoxetine from 20 to 40 mgdaily
Pending Results: No
[2024-03-29 12:42] LABS: HDL Cholesterol 34 mg/dl; LDL Cholesterol, Calculated 101 mg/dl; Total Cholesterol 169 mg/dl (50-199); Triglyceride 170 mg/dl (10-149); Very Low Density Lipoprotein 34 mg/dl (0-30)
[2024-03-29] MEDS: AFLURIA (36 mos+) 2024-2025 FORMULA 0.5 ML IM (14:27)
--- NOTE | 2024-03-29 14:35 | CM ---
CM spoke with [facility] re support services for pt. Pt has been accepted to [facility].
SABRA spoke with [facility]/ [facility] informing of pt's d/c. She stated they didn't have anyone to transport today.
Transportation set up for 17:30 to return pt to [facility]
Divina at [facility], hospitalist and nurse updated.
; . Report: [phone]
Plan: Return to facility.
Pt will follow up with [facility]- Director, [place]: [phone].
--- NOTE | 2024-03-29 14:44 | PTCARENOTE ---
Attempted to call report to #[phone], no answer, left voicemail w/ call back number.
--- NOTE | 2024-03-29 14:44 | W.PN.NEURO.1 ---
Today's Communication / Plan
-
Mr. Hansen can go home on his current medications.
He will follow-up with psychiatry and neurology as outpatient
Neuro Assessment/Plan
Assessment
59-year-old male with history of Tylenol intoxication who was initially confused. He is now at baseline cognitively and there is no neurological deficits
Plan
Continue Depakote 500 mg three times a day.
Continue Keppra 750 mg twice a day
Continue gabapentin 100 mg 3 times a day
He will receive a one-time dose of Toradol for headaches
Subjective/Objective
Subjective Data
Date of Service: March 29, 2024
Patient is doing well has no new complaints and wishes to leave
Objective Data
Vital Signs
Temp Pulse Resp BP Pulse Ox
36.5 C 62 16 147/75 96
03/29/24 08:00 03/29/24 08:00 03/29/24 08:00 03/29/24 08:00 03/29/24 08:00
Lab Results
03/28/24 07:00
03/29/24 06:28
PT 13.2 Sec (11.4-14.6) 03/29/24 06:28
INR 1.02 03/29/24 06:28
Sodium 139 mmol/L (135-145) 03/29/24 06:28
Potassium 4.1 mmol/L (3.5-5.1) 03/29/24 06:28
BUN 24 mg/dl (9-20) H 03/29/24 06:28
Glucose 84 mg/dl (70-99) 03/29/24 06:28
Calcium 9.1 mg/dl (8.4-10.2) 03/29/24 06:28
LDL Cholesterol, Calc 101 mg/dl 03/29/24 06:28
Vitamin B12 965 pg/ml (239-931) H 03/26/24 14:56
Ur Buprenorphine Negative (Negative) 03/26/24 15:12
Patient Allergies
No Known Allergies Allergy (Verified 08/17/23 14:04)
Physical Exam
-
General: Well Developed, Well Nourished, No Apparent Distress and Comfortable
Eyes: Able to visualize OU
HEENT: Normocephalic, Atraumatic and Anicteric
Extremities: No Clubbing, No Cyanosis and No Edema
Psych: Unremarkable and Intact Judgement/Insight
Extended Neurological Exam
Mood & Affect: Mood Unremarkable and Affect Unremarkable
Attention Span & Concentration: Awake, Alert and No Difficulty with 2 Step Request
Memory: Unremarkable, Able to Recall, Recalls Objects and Recalls Short Term
Tremor: Hand Tremor Absent and Head Tremor Absent
Involuntary Movement: None
Speech: Quality Unremarkable and Quantity Unremarkable
Cranial Nerve II: Left Eye: Pupillary Reactivity Unremarkable, Pupillary Size Unremarkable and Visual Roberson Grossly Intact
Cranial Nerve II: Right Eye: Pupillary Reactivity Unremarkable and Pupillary Size Unremarkable
Cranial Nerves III, IV, : Extraocular Movement: Extraocular Movement Full in all Directions
Cranial Nerve V: Facial Sensation: Facial Sensation Unremarkable to Cold, Intact to Pin Prick and Intact to Light Touch
Cranial Nerve VII: Facial Symmetry: Normal Facial Symmetry
Cranial Nerve VIII: Hearing: Unremarkable Hearing to Normal Conversational Volume
Cranial Nerves IX, X: Palate Movement: Palate Elevation Symmetric
Cranial Nerve XI: Shoulder Shrug: Unremarkable
Cranial Nerve XII: Tongue Protusion: Midline
Muscle Strength, Overall: Full Throughout
Muscle Bulk & Tone: Bulk Unremarkable and Tone Unremarkable
Pronator Drift: No Drift in Upper Extremities and No Drift in Lower Extremities
Deep Tendon Reflexes: Unremarkable Throughout
Cold Sensation: Unremarkable
Vibration Sensation: Unremarkable
Touch Sensation: Unremarkable
Coordination: [id number] Testing Unremarkable
Babinski Sign: Absent Bilaterally
Gait & Station: Unremarkable Arm Swing, Up from Seated Without Problem and Up from Lying with Difficulty
[2024-03-29 15:30] VITALS: BP 137/82
[2024-03-29 15:47] LABS: Glucose - Point of Care 130 mg/dl (70-99)
[2024-03-29] MEDS: LOVENOX SC (17:29)
[2024-03-30 12:27] LABS: SSA 52 (Ro)(ENA) Ab, IgG 1 AU/mL (0-40); SSA 60 (Ro)(ENA) Ab, IgG 0 AU/mL (0-40); SSB (La)(ENA) Ab, IgG 0 AU/mL (0-40)
[2024-03-30 12:51] LABS: Vitamin B6 Results 56.2 nmol/L (20.0-125.0)
== END 2024-03-29 17:51 | disposition home or self-care (01) | DRG 917 ==
LOC: 3 WEST ACU 02:42
PROVIDERS: Hospitalist; Physician Assistant; ADMITTING PHYSICIAN Internal Medicine; ATTENDING PHYSICIAN Internal Medicine; CONSULT PHYSICIAN Internal Medicine Gastroenterology; CONSULT PHYSICIAN Psychiatry & Neurology Neurology; CONSULT PHYSICIAN Psychiatry & Neurology Psychiatry; EMERGENCY PHYSICIAN Emergency Medicine; FAMILY PHYSICIAN Internal Medicine
DX: T39.1X2A Poisoning by 4-Aminophenol derivatives, intentional self-harm, initial encounter (principal); G92.8 Other toxic encephalopathy; E11.42 Type 2 diabetes mellitus with diabetic polyneuropathy; E03.9 Hypothyroidism, unspecified; E11.65 Type 2 diabetes mellitus with hyperglycemia; F10.10 Alcohol abuse, uncomplicated; F20.9 Schizophrenia, unspecified; F32.9 Major depressive disorder, single episode, unspecified; G40.909 Epilepsy, unspecified, not intractable, without status epilepticus; I10 Essential (primary) hypertension; E78.5 Hyperlipidemia, unspecified; E86.0 Dehydration; F41.9 Anxiety disorder, unspecified; F43.10 Post-traumatic stress disorder, unspecified; F51.04 Psychophysiologic insomnia; G89.29 Other chronic pain; M54.40 Lumbago with sciatica, unspecified side; N40.0 Benign prostatic hyperplasia without lower urinary tract symptoms; K59.00 Constipation, unspecified; M79.604 Pain in right leg; R06.02 Shortness of breath; Z79.84 Long term (current) use of oral hypoglycemic drugs; Z79.890 Hormone replacement therapy; Z79.899 Other long term (current) drug therapy; Z91.81 History of falling; Z87.820 Personal history of traumatic brain injury; Z87.891 Personal history of nicotine dependence; Z87.898 Personal history of other specified conditions
CPT/HCPCS: 70450; 70551; 72100; 80048; 80053; 80061; 80076; 80143; 80164; 80179; 80306; 80307; 82077; 82140; 82607; 82746; 82805; 82962; 83735; 84207; 84443; 84550; 85025; 85027; 85379; 85610; 85652; 86038; 86140; 86235; 87070; 90686; 93005; 95816; 96374; 96376; 97162; 99285; 99406; G0008; J0132; J7030

== ENCOUNTER 2024-04-06 14:14 | Emergency (ER) | payer MEDICARE, SELFPAY ==
--- NOTE | 2024-04-06 14:15 | ED.GENMED ---
History of Present Illness
General
Chief Complaint: Psychiatric Problem
Time Seen by Provider: 04/06/24 14:15
History of Present Illness
History of Present Illness:
TIME OF INITIAL ENCOUNTER: 2:18 PM
HPI: Patient came in by ambulance. Was on Gabapentin - was having 'a reaction to it' and they took him off of it. States that the patient tells me he was on a 'white pill' he cannot recall the name but feels that he needs this right now. The
patient has multiple pain related concerns. At 1 point today, he had indicated that he had no will to live. He has multiple stressors including lack of social support.
EXAM:
GENERAL: The patient appears somewhat agitated
HEENT: Moist oral mucosa
CARDIOVASCULAR: No murmurs, normal heart rate, regular rhythm, No chest wall tenderness
PULMONARY: No respiratory distress, breath sounds are clear and equal
ABDOMEN: Soft with no peritoneal signs, no tenderness
NEUROLOGIC: Excellent strength all extremities, no coordination deficits
PSYCHIATRIC: Appropriate mental status, fair insight and judgement, he seems to have some tangential thoughts
EXTREMITIES: Nontender, no edema, moves all extremities equally
SKIN: No rash, no lesions
NUMBER AND COMPLEXITY OF PROBLEMS ADDRESSED AT THE ENCOUNTER
� Chronic conditions affecting care: TBI, hyperlipidemia, BPH, type 2 diabetes, alcohol abuse, anxiety/depression, PTSD, psych problems
� Acute Exacerbation and/or Progression of Chronic Illness: This is an acute problem
� Differential Diagnosis includes: Suicidal ideation, suicidal gesture, depression, worsening TBI facts, medication related
AMOUNT AND/OR COMPLEXITY OF DATA TO BE REVIEWED AND ANALYZED
� I performed an independent evaluation of and my interpretation is:
EKG: Sinus, 73, left bundle branch block, nonspecific ST abnormality
CT:
X-rays:
Laboratory Studies: CBC, chemistries, acetaminophen, salicylate, alcohol unremarkable
Other:
� Review of other/old records: I reviewed records, the patient was here with an intentional acetaminophen overdose approximately 2 weeks ago
� Clinical information was obtained by an independent historian: Spoke to [facility] who also spoke to staff at [facility]
� Prescriptions/Medications Considered but not given:
� Further testing considered but not performed:
RISK OF COMPLICATIONS AND/OR MORBIDITY OR MORTALITY OF PATIENT MANAGEMENT
� Social determinants of health affecting care: Resides at a [facility]
� Discussion with other providers: Spoke to [facility]
� Escalation of care including admission/observation vs risk of discharge considered: No indication to keep patient in the hospital or to transfer to a psychiatric facility. He can also already be monitored at his current
facility.
ANY OTHER UPDATES:
3:50 PM: I spoke to [facility] who spoke to [facility] facility/[facility]. We are told that the patient's family member wanted him off the gabapentin as they felt that it made him more agitated. The patient reports regret of indicating that he wanted to
harm himself earlier. He primarily talked about chronic pain issues.
Phy Exam
Physical Exam
Physical Exam:
See HPI
Course
Orders/Labs/Results
Orders:
Orders
04/06/24 14:21
1:1 Observation - Suicide/ Violent Behavior As Directed
Electrocardiogram (*1) Urgent
Reason for Study: Other
Other Reason for Exam: Potential overdose
Crisis Consult Urgent
Reason for Consult: SI
04/06/24 14:22
EKG- Treatment ONCE
04/06/24 14:27
Crisis Consult Urgent
Reason for Consult: depression
04/06/24 14:28
Acetaminophen Urgent
Alcohol Urgent
Complete Blood Count/With Diff Urgent
Comprehensive Metabolic Panel Urgent
Salicylate Urgent
Abnormal Lab Results
04/06/24
14:28
RBC 4.01 L 10^6/uL
(4.70-6.10)
Hgb 12.6 L g/dL
(13.0-18.0)
Hct 36.4 L %
(39.0-52.0)
MCH 31.4 H pg
(27.0-31.0)
BUN 21 H mg/dl
(9-20)
Glucose 107 H mg/dl
(70-99)
Salicylates < 1.0 L mg/dl
(2.0-20.0)
Acetaminophen < 10 L ug/ml
(10-30)
04/06/24 14:28
04/06/24 14:28
Vital Signs
Initial and Last Documented VS:
Initial Vital Signs
Temp Pulse Resp BP Pulse Ox
97.6 F 100 16 146/98 100
04/06/24 14:21 04/06/24 14:21 04/06/24 14:21 04/06/24 14:21 04/06/24 14:21
Last Documented Vital Signs
Temp Pulse Resp BP Pulse Ox
97.6 F 100 16 146/98 100
04/06/24 14:21 04/06/24 14:21 04/06/24 14:21 04/06/24 14:21 04/06/24 14:21
*Critical Care Note
Total Time (30-74mins, 75-104mins- exclusive of procedures): Not Applicable
ED Attending Note
-
Portions of this chart may have been created with voice recognition software.� Occasional wrong word or��sound alike� substitutions may have occurred due to the inherent limitations of voice recognition software.
Discharge Plan
Departure
Patient Disposition: Home (Routine Discharge)
Date of Disposition: 04/06/24
Time of Disposition: 15:52
Patient with high blood pressure during this ER visit?: Yes
Discharge Problem:
Chronic pain
Instructions: Chronic pain, BLOOD PRESSURE
Prescriptions:
No Action
metformin 500 mg Tablet
500 mg PO BID
sennosides [senna] 8.6 mg Tablet
17.2 mg PO HS
polyethylene glycol 3350 [ClearLax] 17 gram Powder In Packet
17 g PO DAILY
olanzapine 10 mg Tablet
10 mg PO HS
therapeutic multivitamin Tablet
1 tab PO BID
tamsulosin [Flomax] 0.4 mg Capsule
0.4 mg PO DAILY
levothyroxine [Synthroid] 50 mcg Tablet
50 mcg PO DAILY
pantoprazole [Protonix] 40 mg Tablet,Delayed Release (Dr/Ec)
40 mg PO DAILY
divalproex 500 mg Tablet Extended Release 24 Hr
500 mg PO TID
docusate sodium [Colace] 100 mg Capsule
100 mg PO DAILY
folic acid 1 mg Tablet
1 mg PO DAILY
levetiracetam [Keppra] 750 mg Tablet
750 mg PO BID
albuterol sulfate 90 mcg/actuation Hfa Aerosol Inhaler
2 puff INHALATION R Q4HPRN PRN (Reason: sob)
fluoxetine [Prozac] 20 mg Capsule
20 mg PO DAILY
prazosin 2 mg Capsule
2 mg PO HS
trolamine salicylate [Aspercreme] 10 % Cream
1 applic TOPICAL DAILYPRN PRN (Reason: mild pain)
melatonin 5 mg Tablet
5 mg PO HSPRN PRN (Reason: sleep)
magnesium oxide 200 mg magnesium Tablet
200 mg PO DAILY
polyethylene glycol 3350 [HealthyLax] 17 gram Powder In Packet
17 g PO DAILY Qty: 14 0RF
gabapentin 100 mg Capsule
100 mg PO TID Qty: 90 0RF
Rx Instructions:
started for neuropathic pain in hands /feet
fluoxetine 20 mg Capsule
40 mg PO DAILY Qty: 60 0RF
Rx Instructions:
dose increased on this adx from 20mg
aspirin 81 mg tablet,delayed release (DR/EC)
81 mg PO DAILY Qty: 30 0RF
Referrals:
Corbin Flannery DO [Family Provider] -
Activity Restrictions/Additional Instructions:
You were evaluated by bag worker who also spoke to the facility at [facility]. Basic blood work is normal including no sign of salicylate, acetaminophen or alcohol in your bloodstream. Return here if worse or other concerns.
Interventions
Interventions:
*Risk Screen - Suicide Last Done: 04/06/24 14:18
*General Assessment Last Done: 04/06/24 14:18
*Neglect/Abuse Screening Last Done: 04/06/24 14:18
*ED COVID-19 Vaccine History Last Done: 04/06/24 14:18
ED-Psychological Assessment Last Done: 04/06/24 14:18
Discharge Date and Time
Print Language: SETSWANA
[2024-04-06 14:21] VITALS: BP 146/98
[2024-04-06 14:35] LABS: % Basophils 0.5 % (0-2); % Eosinophils 2.2 % (0-6); % Immature Granulocytes 0.2 % (0-0.5); % Monocytes 7.3 % (1.7-9.3); % Neutrophils 61.8 % (42.2-75.2); Absolute Eosinophils 0.2 10^3/uL (0-0.7); Absolute Lymphocytes 2.3 10^3/uL (1.2-3.4); Absolute Monocytes 0.6 10^3/uL (0.1-0.6); Absolute Neutrophils 5.1 10^3/uL (1.4-6.5); Hematocrit 36.4 % (39.0-52.0); Hemoglobin 12.6 g/dL (13.0-18.0); Mean Corp Hgb Conc. 34.6 g/dL (33.0-37.0); Mean Corpuscular Hgb 31.4 pg (27.0-31.0); Mean Corpuscular Volume 90.8 fL (80.0-94.0); Nucleated Red Blood Cells % 0 % (-); Platelet Count 194 10^3/uL (130-400); Red Blood Cell Count 4.01 10^6/uL (4.70-6.10); Red Cell Dist. Width 14.3 % (11.5-14.5); White Blood Cell Count 8.3 10^3/uL (4.8-10.8)
[2024-04-06 14:50] LABS: ALT (SGPT) 19 U/L (0-50); AST (SGOT) 19 U/L (17-59); Acetaminophen < 10 ug/ml (10-30); Albumin 4.2 g/dl (3.5-5.0); Alkaline Phosphatase 75 U/L (38-126); Blood Urea Nitrogen 21 mg/dl (9-20); Calcium 9.9 mg/dl (8.4-10.2); Carbon Dioxide 24 mmol/L (22-30); Chloride 104 mmol/L (98-107); Glucose 107 mg/dl (70-99); Potassium 4.4 mmol/L (3.5-5.1); Salicylate < 1.0 mg/dl (2.0-20.0); Sodium 140 mmol/L (135-145); Total Bilirubin 0.4 mg/dl (0.2-1.3); Total Protein 6.8 g/dl (6.3-8.2); eGFR > 60.00
[2024-04-06 14:54] LABS: Alcohol None Detected
== END 2024-04-06 18:50 | disposition home or self-care (01) ==
LOC: EMR 14:14
PROVIDERS: EMERGENCY PHYSICIAN Emergency Medicine; FAMILY PHYSICIAN Internal Medicine Geriatric Medicine
DX: R45.851 Suicidal ideations (principal); R45.1 Restlessness and agitation; G89.29 Other chronic pain; Z60.8 Other problems related to social environment; R03.0 Elevated blood-pressure reading, without diagnosis of hypertension; E11.9 Type 2 diabetes mellitus without complications; N40.0 Benign prostatic hyperplasia without lower urinary tract symptoms; E78.5 Hyperlipidemia, unspecified; F41.9 Anxiety disorder, unspecified; F32.A Depression, unspecified; F43.10 Post-traumatic stress disorder, unspecified; I44.7 Left bundle-branch block, unspecified; Z87.820 Personal history of traumatic brain injury; Z79.82 Long term (current) use of aspirin; Z79.84 Long term (current) use of oral hypoglycemic drugs
CPT/HCPCS: 99284; 80053; 80143; 80179; 82077; 85025; 93005

== ENCOUNTER → 2024-04-27 10:06 | Outpatient (REF) | payer MEDICARE, SELFPAY | LOC: PAVMRI 10:06 | PROVIDERS: ATTENDING PHYSICIAN Anesthesiology; FAMILY PHYSICIAN Internal Medicine Geriatric Medicine | DX: M54.16 Radiculopathy, lumbar region (principal) | CPT/HCPCS: 72148 ==